=== PATIENT | male | born 1950 | race Hispanic/Latino ===

== ENCOUNTER 2017-04-29 14:12 | Outpatient (CLI) | payer OTHER, MEDICARE ==
[~2017-04-29 14:12] MED LIST: Sodium Chloride 0.9% 15 ML NEB ONE
--- NOTE | 2017-04-29 19:12 | HP ---
DATE OF SERVICE: 04/29/2017 HISTORY OF PRESENT ILLNESS: Mr. John Almodovar Jr. is a very pleasant 67-year-old gentleman, who pre sents to the Wound Center for evaluation of a wound of the right anterior abdominal wall. The patien t states that he underwent right dxbiy-tyg-uuhm amputation in October of this year at [facility]. 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 He states t hat the cyst was opened and drained. He states that the mass appeared to be an abscess. He states t hat the wound was associated with hypogranulation, which was treated with silver nitrate. The patien t states he is presently receiving dressing changes of Adaptic, 4 x 4s, and occlusive dressing 3 time s per week with the assistance of Home Health. PAST MEDICAL HISTORY: 1. Diabetes mellitus. 2. Hypertension. 3. Gastroesophageal reflux disease. 4. Peripheral vascular disease. 5. Bladder carcinoma. PAST SURGICAL HISTORY: 1. Left orchiectomy for testicular carcinoma in 1987. 2. Surgery for abdominal aortic aneurysm. 3. Transurethral resection of bladder tumor. 4. Restaging transurethral resection of bladder tumor. 5. Right paimg-ndw-ymqu amputation in 10/2016 at [facility]. MEDICATIONS: The patient does not have a list of his medications with him today. He states that his medications include medications for hypertension and diabetes mellitus. ALLERGIES: METFORMIN. SOCIAL HISTORY: Negative for tobacco or ETOH use, current or previous. FAMILY HISTORY: Significant for diabetes mellitus. The patient states that his mother was diagnosed with diabetes mellitus. PHYSICAL EXAMINATION: VITAL SIGNS: Temperature 97.8, pulse 86, respirations 18, blood pressure 168/72. Accu-Chek 306. GENERAL: A 67-year-old gentleman sitting on chair in examination room in no acute distress. HEENT: Normocephalic, atraumatic. NECK: No nuchal rigidity. CHEST: Clear to auscultation. CARDIAC: Regular rate and rhythm. ABDOMEN: Soft. EXTREMITIES: A wound of the right anterior abdominal wall is present, which measures approximately 1 .6 x 0.8 cm. Granulation tissue is present within the wound margins. No purulent drainage is associ ated with the wound. No erythema of the skin surrounding the wound is present. No maceration of the skin of the periwound is noted. EXTREMITIES: The patient is utilizing a prosthesis after right iqmep-ugh-pxjo amputation. ASSESSMENT AND PLAN: 1. Wound of right anterior abdominal wall as described above. Dressing changes of Silverlon, 4 x 4' s, and Tegaderm will be initiated today. These dressing changes are to be performed on a daily basis after cleansing and irrigation. No antibiotics will be prescribed today based upon the appearance o f the wound. Arrangements will be made for the home delivery of dressing supplies. I will see Mr. Alvaro yousif again in two weeks. 2. Diabetes mellitus. The patient's Accu-Chek in clinic today is 306. The patient has been told th at for optimal wound healing, his blood glucoses should remain below 150. 3. Hypertension. 4. Gastroesophageal reflux disease 5. Peripheral vascular disease. 6. Bladder carcinoma.
== END 2017-04-29 14:13 | disposition home or self-care (01) ==
LOC: WCC 14:12
PROVIDERS: ATTEND Family Medicine
DX: S31.109D Unspecified open wound of abdominal wall, unspecified quadrant without penetration into peritoneal cavity, subsequent encounter (principal); I10 Essential (primary) hypertension; K21.9 Gastro-esophageal reflux disease without esophagitis; E11.51 Type 2 diabetes mellitus with diabetic peripheral angiopathy without gangrene; C67.9 Malignant neoplasm of bladder, unspecified
CPT/HCPCS: 36416; 97602; 99203; A4218; G0463

== ENCOUNTER 2017-05-13 08:27 | Outpatient (CLI) | payer OTHER, MEDICARE ==
--- NOTE | 2017-05-13 09:29 | PRG ---
DATE OF SERVICE: 05/13/2017 HISTORY: Mr. John Almodovar Jr. is a very pleasant 67-year-old gentleman who presents to the Wound C enter for evaluation of a wound of the right anterior abdominal wall. The patient previously stated that he underwent right ytvex-cfa-truq amputation in October of this year at [facility]. He stated that after surgery, he noted the presence of "cyst of his anterior abdominal wall." He stated that the cy stic was opened and drained. He stated that the mass appeared to be an abscess. He stated that the wound was associated with hypergranulation which was treated with silver nitrate. When the patient w as initially seen in the Wound Center, he had been receiving dressing changes of Adaptic, 4 x 4s and an occlusive dressing 3 times per week with the assistance of Home Health. Since the patient's last visit to the Wound Center, he had been receiving dressing changes of Silverlon, 4 x 4's, and Tegaderm plus pad on a daily basis with the assistance of his . PHYSICAL EXAMINATION: VITAL SIGNS: Temperature 97.8, pulse 92, respirations 18, blood pressure 137/71. Accu-Chek 248. EXTREMITIES: A wound of the right anterior abdominal wall is present which measures approximately 0. 7 x 1.1 cm. The dimensions of the wound at the time of the patient's last visit were approximately 1 .6 x 0.8 cm. Hypergranulation is associated with the wound which was treated with the application of silver nitrate. No purulent drainage is associated with the wound. No maceration of the skin of th e periwound is noted. ASSESSMENT AND PLAN: 1. Wound of right anterior abdominal wall as described above. Dressing changes of Silverlon, 4 x 4' s, and Tegaderm will be continued on a daily basis after cleansing and irrigation. The patient's wif e will continue to assist Mr. Almodovar with his dressing changes. I will see Mr. Almodovar again in one week. 2. Diabetes mellitus. The patient's Accu-Chek in clinic today is 248. The patient has been reminde d that for optimal wound healing, his blood glucoses should remain below 150. 3. Hypertension. 4. Gastroesophageal reflux disease. 5. Peripheral vascular disease. 6. Bladder carcinoma.
== END 2017-05-13 08:28 | disposition home or self-care (01) ==
LOC: WCC 08:27
PROVIDERS: ATTEND Family Medicine
DX: T81.89XD Other complications of procedures, not elsewhere classified, subsequent encounter (principal); E11.9 Type 2 diabetes mellitus without complications; I10 Essential (primary) hypertension; K21.9 Gastro-esophageal reflux disease without esophagitis; I73.9 Peripheral vascular disease, unspecified; C67.9 Malignant neoplasm of bladder, unspecified; Z89.511 Acquired absence of right leg below knee
CPT/HCPCS: 17250; 36416

== ENCOUNTER 2017-05-20 09:16 | Outpatient (CLI) | payer MEDICARE, OTHER ==
--- NOTE | 2017-05-20 11:00 | PRG ---
DATE OF SERVICE: 05/20/2017 HISTORY: Mr. John Almodovar Jr. is a very pleasant 67-year-old gentleman who presents to the Wound C enter for evaluation of a wound of the right anterior abdominal wall. The patient previously stated that he underwent right lsjxw-sbr-ncqj amputation in October of this year at [facility]. He stated that after surgery he noted the presence of a "cyst of his anterior abdominal wall." He stated that the c yst was opened and drained. He stated that the mass appeared to be an abscess. He stated that the w ound was associated with hypergranulation which was treated with silver nitrate. When the patient wa s initially seen in the Wound Center, he had been receiving dressing changes of Adaptic, 4 x 4s and a n occlusive dressing 3 times per week with the assistance of Home Health. Since the patient's last v isit to the Wound Center, he has been receiving dressing changes of Silverlon, 4 x 4's, and Tegaderm plus pad on a daily basis with the assistance of his . PHYSICAL EXAMINATION: VITAL SIGNS: Temperature 98.2, pulse 81, respirations 18, blood pressure 167/68, Accu-Chek 148. EXTREMITIES: A wound of the right anterior abdominal wall is present which measures approximately 0. 3 x 0.4 cm. The dimensions of the wound at the time of the patient's last visit were approximately 0 .7 x 1.1 cm. Hypergranulation is associated with the wound which was treated with the application of silver nitrate. No purulent drainage is associated with the wound. No maceration of the skin of th e periwound is noted. ASSESSMENT AND PLAN: 1. Wound of right anterior abdominal wall as described above. Dressing changes of Silverlon, 4 x 4' s, and Tegaderm will be continued on a daily basis after cleansing and irrigation. The patient's wif e will continue to assist Mr. Almodovar with his dressing changes. I will see Mr. Almodovar again in 2 w eeks. Arrangements will be made for the home delivery of dressing supplies. 2. Diabetes mellitus. The patient's Accu-Chek in clinic today is 148. The patient has been reminde d that for optimal wound healing, his blood glucoses should remain below 150. 3. Hypertension. 4. Gastroesophageal reflux disease. 5. Peripheral vascular disease. 6. Bladder carcinoma.
== END 2017-05-20 09:17 | disposition home or self-care (01) ==
LOC: WCC 09:16
PROVIDERS: ATTEND Family Medicine
DX: T81.89XD Other complications of procedures, not elsewhere classified, subsequent encounter (principal); E11.9 Type 2 diabetes mellitus without complications; I10 Essential (primary) hypertension; K21.9 Gastro-esophageal reflux disease without esophagitis; I73.9 Peripheral vascular disease, unspecified; C67.9 Malignant neoplasm of bladder, unspecified; Z89.511 Acquired absence of right leg below knee
CPT/HCPCS: 17250; 36416; 97602

== ENCOUNTER 2017-06-22 08:37 | Outpatient (CLI) | payer MEDICARE, OTHER ==
--- NOTE | 2017-06-22 09:12 | PRG ---
DATE OF SERVICE: 06/22/2017 HISTORY: Mr. John Almodovar is a very pleasant 67-year-old gentleman who presents to the Wound Center for evaluation of a wound of the right anterior abdominal wall. The patient previously stated that he underwent right below-the -knee amputation in October of this year at [facility]. He stated that after surgery, he noted the presence of a "cyst of his anterior abdominal wall." He stated that the cyst was opened and drained. He stated that the mass appear to be an abscess. He stated that the wound was associated with hypergranulation, which was treated with silver nitrate. When the patient was initially seen in the Wound Center, he had been receiving dressing changes of Adaptic, 4 x 4s, and an occlusive dressing 3 times per week with the assistance of Home Health. Since the patient's last visit to the Wound Center, he has been receiving dressing changes of Silverlon, 4 x 4s, and Tegaderm plus pad on a daily basis with the assistance of his . The patient states that since his last visit, the wound appeared to have almost healed completely. He states that suddenly he had the occurrence of copious serous drainage associated with his wound with subsequent recurrence of the hypergranulation. PHYSICAL EXAMINATION: VITAL SIGNS: Temperature 98.1, pulse 89, respirations 16, blood pressure 150/ 72. Accu-Chek 212. ABDOMEN: A wound of the right anterior abdominal wall is present, which measures approximately 0.5 x 0.7 cm. The dimensions of the wound at the time of the patient's last visit were approximately 0.3 x 0.4 cm. Hypergranulation associated with the wound was treated with the application of silver nitrate. Scissors were also used to excise the hypergranulation associated with the wound. No purulent drainage is associated with the wound. No maceration of the skin of the periwound is noted. ASSESSMENT AND PLAN: 1. Wound of right anterior abdominal wall as described above. Dressing changes of Silverlon, 4 x 4s, and Tegaderm will be continued on a daily basis after cleansing and irrigation. The patient's will continue to assist Mr. Almodovar with his dressing changes. I will see Mr. Almodovar again in one week. I have asked the patient to obtain copies of his operative report from [facility]. 2. Diabetes mellitus. The patient's Accu-Chek in clinic today is 212. The patient has been reminded that for optimal wound healing, his blood glucoses should remain below 150. 3. Hypertension. 4. Gastroesophageal reflux disease. 5. Peripheral vascular disease. 6. Bladder carcinoma. MTDD
[2017-06-22] MEDS ORDERED: Sodium Chloride 0.9% 15 ML NEB ONE (10:00)
== END 2017-06-22 08:38 | disposition home or self-care (01) ==
LOC: WCC 08:37
PROVIDERS: ATTEND Family Medicine
DX: S31.109A Unspecified open wound of abdominal wall, unspecified quadrant without penetration into peritoneal cavity, initial encounter (principal); E11.9 Type 2 diabetes mellitus without complications; I10 Essential (primary) hypertension; K21.9 Gastro-esophageal reflux disease without esophagitis; I73.9 Peripheral vascular disease, unspecified; C67.9 Malignant neoplasm of bladder, unspecified
CPT/HCPCS: 17250; 36416; A4218

== ENCOUNTER 2017-06-29 08:10 | Outpatient (CLI) | payer MEDICARE, OTHER ==
--- NOTE | 2017-06-29 09:39 | PRG ---
DATE OF SERVICE: 06/29/2017 HISTORY: Mr. John Almodovar is a very pleasant 67-year-old gentleman who presents to the Wound Center for evaluation of a wound of the right anterior abdominal wall. The patient previously stated that he underwent right below-the -knee amputation in October of this year at [facility]. He stated that after surgery, he noted the presence of a "cyst" of his anterior abdominal wall. He stated that the cyst was opened and drained. He stated that the mass appeared to be an abscess. He stated that the wound was associated with hypergranulation , which was treated with silver nitrate. When the patient was initially seen in the Wound Center, he had been receiving dressing changes of Adaptic, 4 x 4s, and an occlusive dressing 3 times per week with the assistance of Home Health. Since the patient's last visit to the Wound Center, Mr. Almodovar has been receiving dressing changes of Silverlon, 4 x 4s, and Tegaderm plus pad on a daily basis with the assistance of his . He states that the drainage associated with his wound has decreased since his last visit. PHYSICAL EXAMINATION: VITAL SIGNS: Temperature 97.9, pulse 80, respirations 18, blood pressure 119/ 64. Accu-Chek 216. ABDOMEN: A wound of the right anterior abdominal wall is present, which measures approximately 0.5 x 0.6 cm. The dimensions of the wound at the time of the patient's last visit were approximately 0.5 x 0.7 cm. Hypergranulation associated with the wound was treated with the application of silver nitrate. Scissors were also used to excise the hypergranulation associated with the wound. No purulent drainage is associated with the wound. No maceration of the skin of the periwound is noted. ASSESSMENT AND PLAN: 1. Wound of right anterior abdominal wall as described above. Dressing changes of Silverlon, 4 x 4s, and Tegaderm will be continued on a daily basis after cleansing and irrigation. The patient's will continue to assist Mr. Almodovar with his dressing changes. I will see Mr. Almodovar again in one week. The patient was previously asked to obtain copies of his operative reports from [facility]. 2. Diabetes mellitus. The patient's Accu-Chek in clinic today is 216. The patient has been reminded that for optimal wound healing, his blood glucoses should remain below 150. 3. Hypertension. 4. Gastroesophageal reflux disease. 5. Peripheral vascular disease. 6. Bladder carcinoma. MTDD
[2017-06-29] MEDS ORDERED: Sodium Chloride 0.9% 15 ML NEB ONE (13:33)
== END 2017-06-29 08:11 | disposition home or self-care (01) ==
LOC: WCC 08:10
PROVIDERS: ATTEND Family Medicine
DX: T81.89XD Other complications of procedures, not elsewhere classified, subsequent encounter (principal); E11.69 Type 2 diabetes mellitus with other specified complication; I10 Essential (primary) hypertension; K21.9 Gastro-esophageal reflux disease without esophagitis; I73.9 Peripheral vascular disease, unspecified; C67.9 Malignant neoplasm of bladder, unspecified; Z89.511 Acquired absence of right leg below knee
CPT/HCPCS: 17250; 36416; 97602; A4218

== ENCOUNTER 2017-07-06 08:14 | Outpatient (CLI) | payer MEDICARE, OTHER ==
--- NOTE | 2017-07-06 09:25 | PRG ---
DATE OF SERVICE: 07/06/2017 HISTORY: Mr. John Almodovar Jr. is a very pleasant 67-year-old gentleman who presents to the Wound Center for evaluation of a wound of the right anterior abdominal wall. The patient previously stated that he underwent right below-the -knee amputation in October of this year at [facility]. He stated that after surgery he noted the presence of a "cyst" of the anterior abdominal wall. He stated that the cyst was opened and drained. He stated that the mass appeared to be an abscess. He stated that the wound was associated with hypergranulation which was treated with silver nitrate. When the patient was initially seen in the Wound Center, he had been receiving dressing changes of Adaptic, 4 x 4s, and an occlusive dressing 3 times per week with the assistance of Home Health. Since the patient's last visit to the Wound Center, Mr. Almodovar has been receiving dressing changes of Silverlon, 4 x 4s, and Tegaderm plus pad on a daily basis with the assistance of his . Again, Mr. Almodovar states, the drainage associated with his wound has decreased since his last visit. PHYSICAL EXAMINATION: VITAL SIGNS: Temperature 97.8, pulse 91, respirations 18, blood pressure 105/ 66. Accu-Chek 185. ABDOMEN: A wound of the right anterior abdominal wall is present which measures approximately 0.2 x 0.3 cm. The dimensions of the wound at the time of the patient's last visit were approximately 0.5 x 0.6 cm. No hypergranulation is visible within the wound margins today. No purulent drainage is associated with the wound. No maceration of the skin of the periwound is noted. ASSESSMENT AND PLAN: 1. Wound of right anterior abdominal wall as described above. Dressing changes of Silverlon, 4 x 4s, and Tegaderm will be continued on a daily basis after cleansing and irrigation. The patient's will continue to assist Mr. Almodovar with his dressing changes. I will see Mr. Almodovar again in 1 week. The patient states he has a follow-up appointment with his surgeon in early July. 2. Diabetes mellitus. The patient's Accu-Chek in clinic today is 185. The patient has been reminded that for optimal wound healing, his blood glucoses should remain below 150. 3. Hypertension. 4. Gastroesophageal reflux disease. 5. Peripheral vascular disease. 6. Bladder carcinoma. MTDD
== END 2017-07-06 08:15 | disposition home or self-care (01) ==
LOC: WCC 08:14
PROVIDERS: ATTEND Family Medicine
DX: S31.109D Unspecified open wound of abdominal wall, unspecified quadrant without penetration into peritoneal cavity, subsequent encounter (principal); C67.9 Malignant neoplasm of bladder, unspecified; E11.9 Type 2 diabetes mellitus without complications; I10 Essential (primary) hypertension; K21.9 Gastro-esophageal reflux disease without esophagitis; I73.9 Peripheral vascular disease, unspecified
CPT/HCPCS: 36416; 97602

== ENCOUNTER 2017-07-13 07:52 | Outpatient (CLI) | payer MEDICARE, OTHER ==
--- NOTE | 2017-07-13 08:49 | PRG ---
DATE OF SERVICE: 07/13/2017 HISTORY: Mr. John Almodovar Jr. is a very pleasant 67-year-old gentleman who presents to the Wound C enter for evaluation of a wound of the right anterior abdominal wall. The patient previously stated that he underwent right fozgl-pli-wjmk amputation in October of 2016 at [facility]. He stated that after surgery he noted the presence of "cyst" of the anterior abdominal wall. He stated that the cyst was opened and drained. He stated that the mass appear to be an abscess. He stated that the wound was associated with hypergranulation which was treated with silver nitrate. When the patient was initial ly seen in the Wound Center, he had been receiving dressing changes of Adaptic, 4 x 4s and an occlusi ve dressing 3 times per week with the assistance of Home Health. Since the patient's last visit to [facility], Mr. Almodovar has been receiving dressing changes of Silverlon, 4 x 4's, and Tegaderm plus pad every other day with the assistance of his . Today Mr. Almodovar states that he has not h ad any drainage associated with his wound since his last visit. PHYSICAL EXAMINATION: VITAL SIGNS: Temperature 97.7, pulse 70, breathing at 16, blood pressure 134/67. ABDOMEN: The wound of the right anterior abdominal wall has almost healed completely. No hypergranu lation is visible within the wound margins today. No drainage is associated with the wound. No mace ration of the skin of the periwound is noted. ASSESSMENT AND PLAN: 1. Wound of right anterior abdominal wall as described above. Dressing changes of Tegaderm are to b e performed 3 times per week after cleansing and irrigation. The patient's will continue to ass ist Mr. Almodovar with his dressing changes. The wound has almost healed completely and Mr. Almodovar wi ll be discharged from clinic today with followup on a p.r.n. basis. The patient states he has a foll owup appointment with his surgeon next week. As stated above, the patient reports no drainage associ ated with his wound since his last visit on 07/06/2017. 2. Diabetes mellitus. The patient has been reminded that for optimal wound healing, his blood gluco ses should remain below 150. 3. Hypertension. 4. Gastroesophageal reflux disease. 5. Peripheral vascular disease. 6. Bladder carcinoma.
[2017-07-13] MEDS ORDERED: Sodium Chloride 0.9% 15 ML NEB ONE (16:57)
== END 2017-07-13 07:53 | disposition home or self-care (01) ==
LOC: WCC 07:52
PROVIDERS: ATTEND Family Medicine
DX: S31.109A Unspecified open wound of abdominal wall, unspecified quadrant without penetration into peritoneal cavity, initial encounter (principal); E11.9 Type 2 diabetes mellitus without complications; I10 Essential (primary) hypertension; K21.9 Gastro-esophageal reflux disease without esophagitis; I73.9 Peripheral vascular disease, unspecified; C67.9 Malignant neoplasm of bladder, unspecified
CPT/HCPCS: A4218

== ENCOUNTER 2017-08-14 11:04 | Outpatient (CLI) | payer MEDICARE, OTHER ==
[2017-08-14 12:24] LABS: Bilirubin Negative (Negative); Blood, Urine Small (Negative); Clarity CLEAR (Clear); Glucose, Urine (Dipstick) >=1000 mg/dL (Negative); Leukocyte Negative (Negative); Nitrite Negative (Negative); Protein, Urine (Dipstick) 100 mg/dL (Neg-Trace); Specific Gravity, Urine 1.025 (1.002-1.036); pH, Urine 5.5 (5.0-9.0)
[2017-08-14 12:26] LABS: Bacteria/HPF None Seen HPF (None Seen); Hyaline Casts/LPF 0-3 HYALINE CAST LPF (0-3 Hyaline); Squamous Epithelial None Seen HPF (0-3); WBC/HPF 0-3 HPF (0-3)
[2017-08-14 12:27] LABS: PTT 27.3 SEC (22.9-36.1); Prothrombin Time 13.4 SEC (12.0-14.7)
[2017-08-14 12:39] LABS: Anion Gap 13 mmol/L (10-20); BUN (Urea Nitrogen) 22 mg/dL (8.4-25.7); Calc. Creatinine Clearance 0 mL/min (70-130); Calcium 9.5 mg/dL (7.8-10.44); Carbon Dioxide 24 mmol/L (23-31); Chloride 102 mmol/L (98-107); Estimated GFR-MDRD 62; Glucose 332 mg/dL (80-115); Sodium 135 mmol/L (136-145)
[2017-08-14 12:55] LABS: Hemoglobin 13.2 g/dL (14.0-18.0); Mean Corpuscular HGB CONC 35.1 g/dL (32.0-36.0); Mean Corpuscular Hemoglobin 30.8 pg (27.0-31.0); Mean Corpuscular Volume 87.8 fl (80.0-94.0); Mean Platelet Volume 9.3 fL (7.4-10.4); Platelet Count 125 thou/uL (130-400); RBC Distribution Width 11.7 % (11.5-14.5); Red Blood Cell (RBC) Count 4.29 mill/uL (4.70-6.10); White Blood Cell (WBC) Count 7.5 thou/uL (4.8-10.8)
--- NOTE | 2017-08-15 08:10 | EKG ---
Test Reason : Blood Pressure : / mmHG Vent. Rate : 074 BPM Atrial Rate : 074 BPM P-R Int : 166 ms QRS Dur : 094 ms QT Int : 384 ms P-R-T Axes : 059 046 028 degrees QTc Int : 426 ms Normal sinus rhythm Normal ECG When compared with ECG of 08-OCT-2015 16:45, No significant change was found Confirmed by DR. Donald VOGT ([id number]) on 08/15/2017 8:09:49 AM Referred By: KT Confirmed By:DR. Donald VOGT
== END 2017-08-14 11:05 | disposition home or self-care (01) ==
LOC: LABBT 11:04
PROVIDERS: ATTEND Urology
DX: Z01.818 Encounter for other preprocedural examination (principal); N32.89 Other specified disorders of bladder
CPT/HCPCS: 80048; 81001; 85027; 85610; 85730; 87077; 87086; 87186; 93005; 93010

== ENCOUNTER 2017-10-29 10:37 | Outpatient (CLI) | payer MEDICARE ==
[2017-10-29 12:28] LABS: Hemoglobin 13.2 g/dL (14.0-18.0); Mean Corpuscular HGB CONC 35.1 g/dL (32.0-36.0); Mean Corpuscular Hemoglobin 31.3 pg (27.0-31.0); Mean Corpuscular Volume 89.2 fl (80.0-94.0); Mean Platelet Volume 9.3 fL (7.4-10.4); Platelet Count 147 thou/uL (130-400); RBC Distribution Width 11.6 % (11.5-14.5); Red Blood Cell (RBC) Count 4.22 mill/uL (4.70-6.10); White Blood Cell (WBC) Count 5.7 thou/uL (4.8-10.8)
[2017-10-29 12:34] LABS: PTT 25.8 SEC (22.9-36.1)
[2017-10-29 12:50] LABS: Anion Gap 12 mmol/L (10-20); BUN (Urea Nitrogen) 21 mg/dL (8.4-25.7); Calc. Creatinine Clearance 0 mL/min (70-130); Calcium 9.3 mg/dL (7.8-10.44); Carbon Dioxide 27 mmol/L (23-31); Chloride 100 mmol/L (98-107); Estimated GFR-MDRD 56; Glucose 394 mg/dL (80-115); Potassium 4.1 mmol/L (3.5-5.1); Sodium 135 mmol/L (136-145)
[2017-10-29 13:41] LABS: Bilirubin Negative (Negative); Blood, Urine Moderate (Negative); Clarity CLEAR (Clear); Glucose, Urine (Dipstick) >=1000 mg/dL (Negative); Leukocyte Negative (Negative); Nitrite Negative (Negative); Protein, Urine (Dipstick) 30 mg/dL (Neg-Trace); Specific Gravity, Urine 1.024 (1.002-1.036); Urobilinogen 0.2 mg/dL (0.2-1.0); pH, Urine 5.5 (5.0-9.0)
[2017-10-29 13:42] LABS: Bacteria/HPF None Seen HPF (None Seen); Hyaline Casts/LPF 0-3 HYALINE CAST LPF (0-3 Hyaline); RBC/HPF 21-50 HPF (0-3); Squamous Epithelial None Seen HPF (0-3); WBC/HPF 0-3 HPF (0-3)
== END 2017-10-29 10:38 | disposition home or self-care (01) ==
LOC: LABBT 10:37
PROVIDERS: ATTEND Urology
DX: Z01.818 Encounter for other preprocedural examination (principal); C67.9 Malignant neoplasm of bladder, unspecified
CPT/HCPCS: 80048; 81001; 85027; 85610; 85730; 87086; 93005; 93010; 94060; 94727; 94729

== ENCOUNTER 2017-11-12 06:12 | Day surgery (SDC) | payer MEDICARE ==
[2017-10-29 10:54] VITALS: BMI 25.8
[2017-11-12] MEDS ORDERED: Levofloxacin 500 mg/D5W 100 ml Premix Bag ONE (06:28)
[2017-11-12] MEDS ORDERED: Insulin Regular 300 UNITS/3 ML VIAL ONE (08:07)
[2017-11-12] MEDS ORDERED: Fentanyl 100 MCG/2 ML VIAL ONE (08:16)
[2017-11-12] MEDS ORDERED: Ondansetron HCl/PF 4 MG/2 ML Vial ONE ×2 (09:11→15:15)
[2017-11-12] MEDS ORDERED: PROPOFOL 20 ML ONE (09:11)
[2017-11-12] MEDS ORDERED: Lidocaine 1% PF 5 ML VIAL ONE ×2 (09:12→15:15)
--- NOTE | 2017-11-12 09:46 | OP ---
DATE OF SURGERY: 11/12/2017 SERVICE: Urology SURGEON: Edin Reynolds M.D. PREOPERATIVE DIAGNOSIS: Bladder lesion. POSTOPERATIVE DIAGNOSIS: Bladder lesion. PROCEDURE PERFORMED: Bladder biopsy. INDICATIONS FOR PROCEDURE: Mr. Almodovar is a 67-year-old male with a history of prior bladde r cancer. On his surveillance, he was noted to have an erythematous red lesion on his posterior blad sanya wall. This has been followed and has actually grown and is now appearing a little bit more red. I would recommend that we go in for cystoscopy with bladder biopsies. Risks and benefits were discu ssed and he agreed to proceed forward. DESCRIPTION OF PROCEDURE: After identification of armband and verification of consent, the patient w as brought back to the operating room where he underwent general anesthesia with an LMA. He was plac ed in dorsal lithotomy position and prepped and draped in usual sterile fashion. After appropriate t imeout, a lubricated 22 [place] rigid cystoscope was used per urethra into the bladder. A full cystos copy was performed. There were no obvious tumors anywhere in the bladder, but the erythematous red l esion was again noted on the posterior dome of the bladder in the same location as noted on office cy stoscopy. Using the cold cup biopsy forceps, 2 biopsies were taken from the center of this red lesio n and sent off for routine pathologic evaluation in formalin. The Bugbee electrode was then used to cauterize the biopsied area until there was excellent hemostasis. The bladder was decompressed and p artially refilled and reevaluated and there was no bleeding coming from the biopsy site. The bladder was then drained. The cystoscope removed. The patient awakened and taken to PACU for recovery in s table condition. COMPLICATIONS: None. ESTIMATED BLOOD LOSS: Minimal. RETAINED TUBES AND DRAINS: None. SPECIMENS: Bladder biopsy x2. DISPOSITION: The patient will be discharged home and follow up with me next week for biopsy results.
[2017-11-12] MEDS ORDERED: PROPOFOL 200 MG/20 ML VIAL ONE (15:15)
== END 2017-11-12 11:20 | disposition home or self-care (01) ==
LOC: SDC 06:12
PROVIDERS: ATTEND Urology
PROC: 0TBB8ZX Excision of Bladder, Via Natural or Artificial Opening Endoscopic, Diagnostic (ICD-10-PCS; principal; 2017-11-12)
DX: N32.9 Bladder disorder, unspecified (principal); I10 Essential (primary) hypertension; E11.9 Type 2 diabetes mellitus without complications; E78.5 Hyperlipidemia, unspecified; Z79.4 Long term (current) use of insulin; Z79.82 Long term (current) use of aspirin; Z79.02 Long term (current) use of antithrombotics/antiplatelets; Z79.899 Other long term (current) drug therapy; Z88.2 Allergy status to sulfonamides
CPT/HCPCS: 36416; 88305; J1815; J1956; J2001; J2405; J2704; J3010

== ENCOUNTER 2017-12-05 07:34 | Inpatient (IN) | payer MEDICARE ==
[2017-12-05 08:31] LABS: #Eosinphils 0.1 thou/uL (0.0-0.7); #Lymphocytes 1.6 thou/uL (1.20-3.40); #Monocytes 0.5 thou/uL (0.11-0.59); #Neutrophils 3.9 thou/uL (1.40-6.50); %Basophils 0.3 % (0.0-1.0); %Eosinophils 1.3 % (0.0-10.0); %Lymphocytes 26.6 % (21.0-51.0); %Monocytes 7.6 % (0.0-10.0); %Neutrophils 64.2 % (42.0-75.0); Mean Corpuscular HGB CONC 35.6 g/dL (32.0-36.0); Mean Corpuscular Hemoglobin 31.5 pg (27.0-31.0); Mean Corpuscular Volume 88.4 fL (78.0-98.0); Mean Platelet Volume 8.3 fL (7.4-10.4); Platelet Count 134 thou/uL (130-400); RBC Distribution Width 11.5 % (11.5-14.5); Red Blood Cell (RBC) Count 3.82 mill/uL (4.70-6.10); White Blood Cell (WBC) Count 6.1 thou/uL (4.8-10.8)
[2017-12-05 08:37] LABS: Prothrombin Time 13.6 SEC (12.0-14.7)
[2017-12-05 08:41] LABS: Bilirubin Large (Negative); Blood, Urine Large (Negative); Clarity TURBID (Clear); Glucose, Urine (Dipstick) 250 mg/dL (Negative); Leukocyte Moderate (Negative); Nitrite Positive (Negative); Protein, Urine (Dipstick) > or equal to 300 mg/dL (Neg-Trace); Specific Gravity, Urine 1.029 (1.002-1.036); pH, Urine 6.5 (5.0-9.0)
[2017-12-05 08:44] LABS: Bacteria/HPF None Seen HPF (None Seen); RBC/HPF GREATER THAN 50-TNTC HPF (0-3); Squamous Epithelial None Seen HPF (0-3)
[2017-12-05 08:47] LABS: Pathc Cast-AUWi Flag 8.47 (0-2.49)
[2017-12-05 08:49] LABS: Anion Gap 14 mmol/L (10-20); BUN (Urea Nitrogen) 18 mg/dL (8.4-25.7); Calc. Creatinine Clearance 0 mL/min (70-130); Carbon Dioxide 23 mmol/L (23-31); Chloride 101 mmol/L (98-107); Estimated GFR-MDRD 63; Glucose 255 mg/dL (80-115); Potassium 4.3 mmol/L (3.5-5.1); Sodium 134 mmol/L (136-145)
[2017-12-05 08:54] LABS: Hyaline Casts/LPF NONE SEEN LPF (0-3 Hyaline); Manual Microscopic Reviewed? No Path Casts Seen
[2017-12-05] MEDS ORDERED: HYDROmorphone 0.5 MG/0.5 ML SYRINGE ONE (09:03)
[2017-12-05] MEDS ORDERED: Fentanyl 100 MCG/2 ML VIAL ONE (09:03)
[2017-12-05] MEDS ORDERED: Midazolam HCl 2 mg/2 ml Vial ONE (09:03)
[2017-12-05] MEDS ORDERED: Piperacillin/Tazobactam 3.375 GM VIAL ONE (09:20)
--- NOTE | 2017-12-05 10:04 | CT ---
CT OF THE ABDOMEN AND PELVIS WITHOUT AND WITH CONTRAST: COMPARISON: 02/23/17. HISTORY: Bladder cancer with hematuria and heavy bleeding from the penis that began on . TECHNIQUE: Multiple contiguous axial images were obtained in a CT of the abdomen and pelvis without and with IV contrast per urography protocol. Postcontrast images were obtained in the nephrographic and excretor y phases. Coronal reformats were performed. 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 There are punctate 1-2 mm calcifications in the right kidney. No hydronephr osis is seen. Gallstones are seen in the gallbladder. The liver, adrenal glands, spleen, and pancreas are unremark able. No free air, free fluid, or stranding changes are seen in the abdomen or pelvis. The large and small bowel are unremarkable. No abdominal or pelvis lymphadenopathy are present. There is a 9.1 cm hyperdense mass within the urinary bladder. This was not seen on the prior examina tion. There is hyperdense without IV contrast and likely represents a large amount of hematoma. The re appears to be active extravasation along the superior aspect of the superior and left lateral aspe ct of the bladder. No abdominal or pelvic lymphadenopathy are seen. Atherosclerotic calcifications are seen in the aorta. 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 This is unchanged. The patient has a bypass graft extending from the aorta near the diaphragm down to the left external iliac artery /common femoral artery. These findings are stable compared to the prior exam. There are multiple periumbilical ventral hernias containing fat and nonobstructed small bowel. Along the right abdominal wall, there is a tubular structure running from cranial to caudal in direction. This runs to the region of the right groin and could have represented a prior axillofemoral bypass g raft site. This does not contain air like it did on the prior examination. Degenerative changes are seen in the spine. There is an abnormal appearance of the right femoral nec k which could potentially represent a metastatic lesion and/or healing fracture. The visualized infe rior thorax is unremarkable. IMPRESSION: 1. Large bladder hematoma with active extravasation into the urinary bladder at this time. 2. Nonobstructing right renal calcification. 3. Cholelithiasis. POS: [facility]
[2017-12-05] MEDS ORDERED: diphenhydrAMINE 50 MG/ML VIAL IVP PRN (11:22)
[2017-12-05] MEDS ORDERED: Mag-Al 1200 mg/1200 mg/30 ML UDCUP PO PRN (11:22)
[2017-12-05] MEDS ORDERED: hydrALAZINE 20 MG/ML VIAL SLOW IVP PRN ×2 (11:22)
[2017-12-05] MEDS ORDERED: Dextrose 5% in Water 1,000 ML IV PRN (11:27)
[2017-12-05] MEDS ORDERED: Dextrose 50% Abboject 50 ML SYRINGE SLOW IVP PRN (11:27)
[2017-12-05] MEDS ORDERED: SUGAMMADEX SODIUM 200 MG/2 ML VIAL ONE ×2 (11:29→11:30)
[2017-12-05] MEDS ORDERED: ISOVUE-370 76%-LOCM 1 ML ONE (12:12)
[2017-12-05] MEDS: Hyoscyamine Sulfate SL 0.125 mg Tablet SL SCH ×3 (12:58→23:37)
[2017-12-05] MEDS: Sodium Chloride 0.9% 1,000 ML IV SCH ×2 (12:59→22:49)
--- NOTE | 2017-12-05 13:13 | CON ---
DATE OF CONSULTATION: 12/05/2017 ER CONSULTATION PRIMARY UROLOGIST: Dr. Reynolds. HISTORY OF PRESENT ILLNESS: Mr. Almodovar is a pleasant 67-year-old male , Pashto speaking, who presents with his to the emergency room per my request. The patient called our office on Thursday afternoon complaining of gross hematuria. He was advised to obtain a UA C&S. Subsequently, gross hematuria has persisted and his was concerned regarding persistent hematuria with passing of clots, I informed them to transition to the emergency room this morning. He denies fever, nausea, vomiting, abdominal discomfort. Extended family at bedside. His chart is reviewed extensively both in-house an outpatient records and clinical history. PAST MEDICAL HISTORY: Includes diabetes, hypertension, hyperlipidemia, osteoarthritis, history of right testicular cancer, status post orchiectomy, history of low-grade TCC, history of large fungal growth of AAA followed by a CT surgeon in [place] on chronic Diflucan for the rest of his life. PAST SURGICAL HISTORY: AAA repair in 2002, right radical orchiectomy by Dr. 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 On 11/12/2017, he underwent cystoscopy, bladder biopsy of an erythematous nonspecific lesion by Dr. Reynolds. Multiple biopsies at the dome was obtained. Pathology negative for malignancy. FAMILY HISTORY: Positive for heart disease, hypertension. SOCIAL HISTORY: Nonsmoker, works at [employer], has extended family at bedside and . HOME MEDICATIONS: Include tamsulosin, amlodipine, fluconazole, glimepiride, atorvastatin, baby aspirin, Plavix 75 mg, which he took last night, lisinopril, tramadol, Colace, Pyridium, oxybutynin p.r.n. ALLERGIES: He is allergic to METFORMIN. PHYSICAL EXAMINATION: GENERAL: Patient is resting comfortably. HEART: Has regular rate. LUNGS: Decreased inspiratory effort; however, clear. ABDOMEN: Demonstrates midline laparotomy incision with ventral incisional hernia, nontender. He has evidence of prior graft in his groin, right lower extremity consistent with BKA. GENITOURINARY: Right testicle is absent consistent with right radical orchiectomy. Left testis is grossly unremarkable. He is uncircumcised, there is gross blood at the meatus. Of note, ER staff was unable to pass a coude; however, this was a 24 Swiss three-way by the ER staff. Unable to pass to the level of the bladder. IMAGING DATA: Per my request, a CT of the abdomen and pelvis with and without IV contrast hematuria protocol was obtained which the patient just recently returned from CT. PERTINENT LABORATORY DATA: White count 6.1, hemoglobin is 12. Last month hemoglobin is 13, platelet 134, BUN 21, creatinine 1.29. Recent urine demonstrates 100 protein, trace leukocytes, positive nitrites; however, no bacteria with 7-10 rbc's. His previous coagulation profile was within normal limits. His previous urine culture dated 08/2017 demonstrates Enterococcus multidrug resistant, sensitive to Zosyn. CT on 02/2017 demonstrates no hydronephrosis, no obstruction. Today, CT scan hematuria protocol which I reviewed myself and with the radiologist, there is a large bladder hematoma measuring approximately 8-9 cm. There is active arterial bleeding appreciated , there is no evidence of hydronephrosis. The prostate is not significantly enlarged. IMPRESSION/PLAN: 1. Mr. Almodovar is a 67-year-old male with history of diabetes. 2. Hypertension. 3. History of testicular cancer. 4. History of AAA with large fungal growth. 5. History of bladder cancer, status post transurethral resection of the bladder tumor 2013, low grade T1 TCC. He has completed his BCG per patient. Recent cystoscopy, bladder biopsy was obtained due to nonspecific lesion just few weeks ago. He presents with gross hematuria, clot retention with very large clot with evidence of active bleeding. The patient is n.p.o. for OR for evacuation of clots, fulguration of bleed. I do not think that this bladder cancer recurrence is likely he has bleeding from the previous biopsy site. Plavix will be held. We will consult medical service to follow due to multiple comorbidities. Plavix / anticoagulation is contraindicated due to active bleeding. [facility]
[2017-12-05 13:24] VITALS: BMI 25.0
[2017-12-05 13:28] LABS: #Lymphocytes 1.1 thou/uL (1.20-3.40); #Monocytes 0.4 thou/uL (0.11-0.59); #Neutrophils 5.7 thou/uL (1.40-6.50); %Eosinophils 0.6 % (0.0-10.0); %Lymphocytes 15.2 % (21.0-51.0); %Monocytes 5.5 % (0.0-10.0); %Neutrophils 78.7 % (42.0-75.0); Hemoglobin 10.8 g/dL (14.0-18.0); Mean Corpuscular HGB CONC 34.9 g/dL (32.0-36.0); Mean Corpuscular Hemoglobin 30.9 pg (27.0-31.0); Mean Corpuscular Volume 88.4 fL (78.0-98.0); Mean Platelet Volume 7.8 fL (7.4-10.4); Platelet Count 137 thou/uL (130-400); RBC Distribution Width 11.6 % (11.5-14.5); Red Blood Cell (RBC) Count 3.51 mill/uL (4.70-6.10); White Blood Cell (WBC) Count 7.3 thou/uL (4.8-10.8)
[2017-12-05] MEDS: cefTRIAXone\\ROCEPHIN 1 GM in Sodium Chloride 0.9% 100 ML IVPB SCH (13:42)
--- NOTE | 2017-12-05 14:41 | HP ---
PRIMARY CARE PHYSICIAN: Erick Pradhan D.O. PRESENTING COMPLAINT: "Blood in my urine." HISTORY OF PRESENT ILLNESS: Mr. John Almodovar is a 67-year-old male with a medical history of hypertension, hyperlipidemia, testicular malignancy, AAA, type 2 diabetes mellitus, peripheral vascular disease, and hiatal hernia, who presents to the emergency room with hematuria. He reports that it started on evening where he had one episode of hematuria. He recently had a urological procedure about 2 weeks ago, so he had attributed this to his recent procedure; however, two days later, he developed persistent hematuria associated with blood clots. Due to worsening symptoms, he called his urologist , who then told him to present to the hospital. At the emergency room, his vital signs were stable. Hemoglobin was 10.8 and urinalysis revealed urine with large amount of blood and he immediately had a CT of the abdomen/pelvis, which revealed a large bladder hematoma with active extravasation into the urinary bladder and also had a nonobstructive renal calcification and cholelithiasis. Before coming to the emergency room, he also complained of urinary retention. He had no fevers or chills. He had no cardiac, pulmonary, or abdominal symptoms. PAST MEDICAL HISTORY: As stated in the HPI. PAST SURGICAL HISTORY: AAA repair, cystoscopy and bladder biopsy. FAMILY HISTORY: Reviewed and noncontributory. SOCIAL HISTORY: Does not drink alcohol, smoke cigarettes or use illicit drugs. ALLERGIES: No known drug allergies. HOME MEDICATIONS: Aspirin 81 mg daily, Plavix 75 mg q.a.m., Norvasc 5 mg daily , atorvastatin 20 mg at bedtime, fluconazole 100 mg q.a.m., glimepiride 2 mg b.i.d., lisinopril 2.5 mg q.a.m., Flomax 0.4 mg at bedtime. REVIEW OF SYSTEMS: All systems reviewed were negative except as stated in HPI. PHYSICAL EXAMINATION: VITAL SIGNS: Temperature 97.5 degree Fahrenheit, pulse rate 73, respiratory rate 18, oxygen saturation 98% on room air, blood pressure 116/70. GENERAL: Not in acute distress. He is lying comfortably in bed. HEENT: Normocephalic and atraumatic. Not pale, anicteric. Moist mucous membrane. CARDIOVASCULAR: S1, S2 only. Regular rate and rhythm. No murmurs, rubs or gallops. RESPIRATORY: Vesicular breath sounds bilaterally. No wheezes, rales or rhonchi. ABDOMEN: Soft, nontender, nondistended. Bowel sounds normoactive. No hepatosplenomegaly. No suprapubic tenderness. MUSCULOSKELETAL: No edema in the left lower extremities. He has an amputation on his right extremity and uses a prosthesis. NEUROLOGIC: Alert and well oriented to time, place and person. No focal deficits. PSYCHIATRIC: Normal mood and affect. SKIN: Warm, dry, well-perfused. No rashes or lesions. LABORATORY DATA: Urinalysis with large amounts of blood, nitrites, bilirubin and wbc 7-10. Hematology: Hemoglobin was 12 on arrival at around 8:25 a.m. but then dropped to 10.8 around 1:00 p.m. INR 1.0. Serum chemistry unremarkable apart from blood glucose of 255. IMAGING: CT abdomen/pelvis as stated in HPI. ASSESSMENT AND PLAN: 1. Hematuria secondary to large bladder hematoma. 2. Hypertension. 3. Type 2 diabetes mellitus. 4. Hyperlipidemia. 5. Peripheral vascular disease. PLAN: The patient is to be taken to the OR by Urology Service for removal of his hematoma. We will trend his hemoglobin q.8 hours, and transfuse if hemoglobin less than 7. For his type 2 diabetes, he will be resumed on his home medications and placed on sliding scale insulin a.c. and at bedtime. His antihypertensive will also be restarted as well as his cholesterol medications. Aspirin and Plavix being held for now secondary to hematuria and hematoma. Deep venous thrombosis prophylaxis, SCDs. CODE STATUS: FULL CODE. MTDD
[2017-12-05] MEDS: HYDROcodone/Acetaminophen 7.5/325 mg Tablet PO PRN ×2 (15:01→19:14)
--- NOTE | 2017-12-05 16:09 | OP ---
DATE OF PROCEDURE: 12/05/2017 PREOPERATIVE DIAGNOSES: 1. A 67-year-old male with history of transitional cell carcinoma of the bladder. 2. Recent cystoscopy, bladder biopsy of dome lesion, 11/12/2017. 3. History of peripheral vascular disease on chronic anticoagulation with Plavix. 4. Current presentation due to clot retention, CT demonstrating 8-9 cm large bladder tumor with active bleed as there is an arterial blush. POSTOPERATIVE DIAGNOSES: 1. A 67-year-old male with history of transitional cell carcinoma of the bladder. 2. Recent cystoscopy, bladder biopsy of dome lesion, 11/12/2017. 3. History of peripheral vascular disease and chronic anticoagulation with Plavix. 4. Current presentation due to clot retention, CT demonstrating 8-9 cm large bladder tumor with active bleed as there is an arterial blush. PROCEDURES PERFORMED: Cystoscopy, evacuation of very large bladder clot, fulguration of bleed, 22-Honduran 30 mL Yadav catheter 3-way and continuous bladder irrigation. SURGEON: Sabine Sidhu D.O. ANESTHESIA: General. COMPLICATIONS: None apparent. SPECIMEN: Bladder clots sent for permanent. ESTIMATED BLOOD LOSS: Intraoperative minimal. INTRAOPERATIVE FINDINGS: 1. Previous bladder biopsy site noted at the dome with active oozing/bleed, another area in the left lateral bladder neck with a discrete area of bleed. 2. Diffuse area of intermittent weepy bladder mucosa. 3. Prostate hyperplasia minimally obstructing. INDICATIONS FOR THE PROCEDURE AND HISTORY: Mr. Almodovar is a 67-year-old male followed by Dr. Reynolds. He has a history of bladder cancer and has completed BCG. He recently underwent bladder biopsy 11/12/2017, bladder biopsy site was cauterized with endoscopic Bugbee. He called our office on Thursday due to gross hematuria, advised regarding UA WELFARE DIRECTOR to rule out UTI component. Called this morning due to persistent gross hematuria. He states that he has been urinating hematuria red in color for the last few days. CT of the abdomen and pelvis in the ER demonstrated very large bladder clot with active vascular blush. The patient was taken emergently to the OR. DESCRIPTION OF THE PROCEDURE: After an informed consent was signed, the patient was taken to the operating room, placed in a dorsal lithotomy position with the genital area prepped and draped in the usual surgical sterile fashion. Based on his prior urine cultures, I did provide Levaquin and Zosyn. Left KIMI hose and SCD was placed as he has a right AKA. We started the procedure with a 26-Honduran resectoscope with a visual obturator. There was no evidence of urethral stricture. Prostate appeared within normal limits. Upon entering the bladder, there was no bladder mucosa visualized due to a large bladder clot. Using an Ellik evacuator, we Ellik evacuated a large bladder clot. This took quite some time as the clot was very large and adherent. After evacuation of all blood clots, we surveyed the bladder looking for discrete bleed. Biopsy site at the dome was noted. The surface area appeared to be approximately 2-3 cm. There was an active oozing from the bed of the tumor. The area did appear somewhat thin. Therefore, I did not aggressively coagulate; however, was able to coagulate what was contributing to the active bleeding. We then surveyed the rest of the bladder which demonstrated intermittent area of patchy oozing consistent with prior BCG. 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 I did, however, find an active bleeding vessel arterial nature in the left lateral bladder neck region. This was well away from the UOs bilaterally. We fulgurated the site and resolution of bleeding was noted. A 22-Honduran three- way Yadav catheter was inserted, 30 mL insufflated. CBI at a light rate demonstrated pink vesta urine. He will be monitored with CBI. Anticipate patient will be in house over the weekend. The patient is not a candidate to restart his Plavix and aspirin anticoagulation due to presenting clot retention. continue antibiotics. ADRIAN
[2017-12-05] MEDS ORDERED: Ondansetron HCl/PF 4 MG/2 ML Vial ONE (16:16)
[2017-12-05] MEDS ORDERED: PROPOFOL 200 MG/20 ML VIAL ONE (16:16)
[2017-12-05] MEDS ORDERED: Glycopyrrolate 0.2 MG/ML 5 ML SYRINGE ONE (16:16)
[2017-12-05] MEDS ORDERED: Lidocaine 1% PF 5 ML VIAL ONE (16:16)
[2017-12-05] MEDS: Insulin Regular 300 UNITS/3 ML VIAL SC PRN ×2 (17:58→21:34)
[2017-12-05] MEDS ORDERED: Famotidine/PF 20 mg/2ml Vial SLOW IVP SCH (21:00)
[2017-12-05] MEDS: Docusate 100 MG CAP PO SCH (21:31)
[2017-12-05] MEDS: Glimepiride 2 MG TAB PO SCH (21:32)
[2017-12-05] MEDS: Tamsulosin HCl 0.4 MG CAP PO SCH (21:32)
[2017-12-05] MEDS ORDERED: Famotidine 20 MG TAB PO SCH (22:30)
[2017-12-05] MEDS ORDERED: Chloraseptic Spray 180 ml Bottle PO PRN (22:57)
[2017-12-06 02:18] LABS: #Eosinphils 0.2 thou/uL (0.0-0.7); #Lymphocytes 2.5 thou/uL (1.20-3.40); #Monocytes 0.5 thou/uL (0.11-0.59); #Neutrophils 4.7 thou/uL (1.40-6.50); %Basophils 0.2 % (0.0-1.0); %Eosinophils 2.6 % (0.0-10.0); %Lymphocytes 31.1 % (21.0-51.0); %Monocytes 6.8 % (0.0-10.0); %Neutrophils 59.3 % (42.0-75.0); Hemoglobin 10.5 g/dL (14.0-18.0); Mean Corpuscular HGB CONC 35.4 g/dL (32.0-36.0); Mean Corpuscular Hemoglobin 31.5 pg (27.0-31.0); Mean Corpuscular Volume 89.2 fL (78.0-98.0); Mean Platelet Volume 6.7 fL (7.4-10.4); Platelet Count 155 thou/uL (130-400); RBC Distribution Width 11.6 % (11.5-14.5); Red Blood Cell (RBC) Count 3.33 mill/uL (4.70-6.10); White Blood Cell (WBC) Count 7.9 thou/uL (4.8-10.8)
[2017-12-06 02:38] LABS: Hemoglobin A1c 9.4 % (4.0-6.0)
[2017-12-06 02:43] LABS: Anion Gap 12 mmol/L (10-20); BUN (Urea Nitrogen) 13 mg/dL (8.4-25.7); Calc. Creatinine Clearance 82 mL/min (70-130); Calcium 8.8 mg/dL (7.8-10.44); Carbon Dioxide 28 mmol/L (23-31); Chloride 102 mmol/L (98-107); Estimated GFR-MDRD 75; Glucose 84 mg/dL (80-115); Potassium 3.7 mmol/L (3.5-5.1); Sodium 138 mmol/L (136-145)
[2017-12-06] MEDS: Hyoscyamine Sulfate SL 0.125 mg Tablet SL SCH ×4 (06:33→23:01)
[2017-12-06] MEDS: Amlodipine 5 MG TAB PO SCH (09:09)
[2017-12-06] MEDS: Tamsulosin HCl 0.4 MG CAP PO SCH ×2 (09:10→19:43)
[2017-12-06] MEDS: Famotidine 20 MG TAB PO SCH ×2 (09:10→19:43)
[2017-12-06] MEDS: Lisinopril 2.5 MG TAB PO SCH (09:10)
[2017-12-06] MEDS: Fluconazole 100 MG TAB PO SCH (09:10)
[2017-12-06] MEDS: Docusate 100 MG CAP PO SCH ×2 (09:10→19:43)
[2017-12-06] MEDS: Sodium Chloride 0.9% 1,000 ML IV SCH ×2 (09:11→16:35)
[2017-12-06] MEDS: Glimepiride 2 MG TAB PO SCH ×2 (09:11→19:43)
[2017-12-06] MEDS: cefTRIAXone\\ROCEPHIN 1 GM in Sodium Chloride 0.9% 100 ML IVPB SCH (11:21)
--- NOTE | 2017-12-06 11:21 | PDOC.PN ---
- Subjective Encounter Start Date: 12/06/17 Encounter Start Time: 11:19 Patient seen and examined. He has a h/o transitional cell bladder ca with recent cystoscopy and biopsy November 12. He developed outpatient urologic complications- bladder hematoma which has been removed by urology service. Doing well post-op. No acute events overnight. Patient has no complaints. - Objective MAR Reviewed: Yes Vital Signs & Weight: Vital Signs (12 hours) Temp Pulse Resp BP BP Pulse Ox 12/06/17 09:10 69 128/77 12/06/17 09:09 69 128/77 12/06/17 08:00 98.2 F 69 16 97 12/06/17 07:20 98.2 F 69 16 128/77 97 12/06/17 04:00 98.8 F 66 14 138/77 98 12/06/17 00:00 98.4 F 68 16 124/73 94 L I&O: 12/05/17 12/06/17 12/07/17 06:59 06:59 06:59 Output Total 2100 Balance -2100 Result Diagrams: 12/06/17 02:09 12/06/17 02:09 Additional Labs: Accuchecks 12/06/17 12/06/17 12/05/17 10:52 06:42 20:45 POC Glucose 216 H 121 H 240 H 12/05/17 16:28 POC Glucose 255 H Phys Exam - Physical Examination Constitutional: NAD HEENT: moist MMs, sclera anicteric Neck: supple, full ROM Respiratory: no wheezing, no rales, no rhonchi, clear to auscultation bilateral Cardiovascular: RRR, no significant murmur, no rub Gastrointestinal: soft, non-tender, no distention, positive bowel sounds Musculoskeletal: no edema, pulses present Neurological: non-focal, moves all 4 limbs Psychiatric: normal affect, A&O x 3 Skin: no rash, normal turgor Dx/Plan (1) Hematuria Code(s): R31.9 - HEMATURIA, UNSPECIFIED Status: Acute Qualifiers: Hematuria type: gross Qualified Code(s): R31.0 - Gross hematuria (2) Hematoma of bladder wall Code(s): S37.22XA - CONTUSION OF BLADDER, INITIAL ENCOUNTER Status: Acute Qualifiers: Encounter type: subsequent encounter Qualified Code(s): S37.22XD - Contusion of bladder, subsequent encounter (3) Diabetes type 2, controlled Code(s): E11.9 - TYPE 2 DIABETES MELLITUS WITHOUT COMPLICATIONS Status: Chronic Qualifiers: Diabetes mellitus oil heaterman insulin use: without retirement use Diabetes mellitus complication status: with hyperglycemia Qualified Code(s): E11.65 - Type 2 diabetes mellitus with hyperglycemia (4) Dyslipidemia Code(s): E78.5 - HYPERLIPIDEMIA, UNSPECIFIED Status: Chronic (5) Hypertension Code(s): I10 - ESSENTIAL (PRIMARY) HYPERTENSION Status: Chronic Qualifiers: Hypertension type: essential hypertension Qualified Code(s): I10 - Essential (primary) hypertension (6) PVD (peripheral vascular disease) Code(s): I73.9 - PERIPHERAL VASCULAR DISEASE, UNSPECIFIED Status: Chronic (7) Transitional cell bladder cancer Code(s): C67.9 - MALIGNANT NEOPLASM OF BLADDER, UNSPECIFIED Status: Acute - Plan cont current plan of care, plan discussed w/ family, starkey catheter, continue antibiotics, out of bed/ambulate, DVT proph w/SCDs Continue antibiotics Continue Amaryl and sliding scale insulin Hold ASA and Plavix. Review of Systems - Medications/Allergies Allergies/Adverse Reactions: Allergies Allergy/AdvReac Type Severity Reaction Status Date / Time metformin Allergy leg Verified 10/29/17 11:00 swelling Medications: Current Medications Hydrocodone Bitart/Acetaminophen ([place]don 7.5/325) 1 tab PO Q4H PRN PRN Reason: Moderate Pain (4-6) Hydrocodone Bitart/Acetaminophen (Corydon 7.5/325) 2 tab PO Q4H PRN PRN Reason: Severe Pain (7-10) Last Admin: 12/05/17 19:14 Dose: 2 tab Al Hydroxide/Mg Hydroxide (Maalox) 30 ml PO Q4H PRN PRN Reason: Indigestion Amlodipine Besylate ([facility]asc) [facility] [place] Last Admin: 12/06/17 09:09 Dose: 5 mg Atorvastatin Calcium (Lipitor) 20 mg PO HS [facility] Dextrose/Water (Dextrose 50%) 25 gm SLOW IVP PRN PRN PRN Reason: Hypoglycemia Diphenhydramine HCl (Benadryl) 25 mg IVP Q6H PRN PRN Reason: Itching Docusate Sodium (Colace) 100 mg PO BID [facility] Last Admin: 12/06/17 09:10 Dose: 100 mg Famotidine (Pepcid) 20 mg PO BID [facility] Last Admin: 12/06/17 09:10 Dose: 20 mg Fluconazole (Diflucan) 100 mg PO QAM [facility] Last Admin: 12/06/17 09:10 Dose: 100 mg Glimepiride (Amaryl) 2 mg PO BID [facility] Last Admin: 12/06/17 09:11 Dose: 2 mg Glucagon (Glucagon) 1 mg IM PRN PRN PRN Reason: Hypoglycemia Hydralazine HCl (Apresoline) 20 mg SLOW IVP Q4H PRN PRN Reason: SBP greater than 160/100 Hyoscyamine Sulfate (Levsin Sl) 0.25 mg SL Q6HR [facility] Last Admin: 12/06/17 06:33 Dose: 0.25 mg Ceftriaxone Sodium 1 gm/ (Sodium Chloride) 100 mls @ 200 mls/hr IVPB Q24HR [facility] Last Admin: 12/05/17 13:42 Dose: 100 mls Sodium Chloride (Normal Saline 0.9%) 1,000 mls @ 100 mls/hr IV .Q10H [facility] Last Admin: 12/06/17 09:11 Dose: 1,000 mls Dextrose/Water (D5w) 1,000 mls @ 0 mls/hr IV .Q0M PRN; As Directed PRN Reason: Hypoglycemia Insulin Human Regular (Humulin R) 0 units SC .MODERATE SLIDING SC PRN PRN Reason: Moderate Correctional Scale Last Admin: 12/05/17 21:34 Dose: 4 unit Lisinopril (Zestril) 2.5 mg PO [facility] Last Admin: 12/06/17 09:10 Dose: 2.5 mg Morphine Sulfate (Morphine) 2 mg IVP Q2H PRN PRN Reason: Moderate Pain (4-6) Morphine Sulfate (Morphine Sulfate) 4 mg IVP Q2H PRN PRN Reason: Severe Pain (7-10) Last Admin: 12/05/17 12:59 Dose: 4 mg Phenol (Chloraseptic [place] 180 Ml Bot) 0 ml PO PRN PRN PRN Reason: SORE THROAT Last Admin: 12/05/17 23:32 Dose: 2 spray Sodium Chloride (Flush - Normal Saline) 10 ml IVF PRN PRN PRN Reason: Saline Flush Tamsulosin HCl (Flomax) 0.4 mg PO DAILY [facility] Last Admin: 12/06/17 09:10 Dose: 0.4 mg Tamsulosin HCl (Flomax) 0.4 mg PO [facility] Last Admin: 12/05/17 21:32 Dose: 0.4 mg
[2017-12-06] MEDS: Insulin Regular 300 UNITS/3 ML VIAL SC PRN ×2 (11:23→17:46)
--- NOTE | 2017-12-06 12:28 | PRG ---
DATE OF SERVICE: 12/06/2017 SUBJECTIVE: The patient is feeling great this morning, extended family at bedside. PHYSICAL EXAMINATION: VITAL SIGNS: Stable. CBI going at a low rate, clear. ABDOMEN: Soft, nontender, nondistended. LABORATORY DATA: White count 7.9, hemoglobin 10.5, platelet 155. Creatinine 0.9, hemoglobin A1c is 9.4 on sliding scale insulin. IMPRESSION AND PLAN: 1. Mr. Almodovar is a pleasant 67-year-old male with history of testicular cancer in remission status post orchiectomy: 2. History of bladder cancer. 3. History of peripheral vascular disease, previously on chronic Plavix. 4. Current admission due to clot retention. Postop day #1 status post cystoscopy, evacuation of very large bladder clot, fulguration of multiple areas with active bleed. The patient currently doing well. continue CBI today, will hold the CBI tomorrow morning. Even if his urine output is clear, it would be prudent to discharge patient with an indwelling Yadav catheter. Urine culture is pending, continue Rocephin for now. Hold all anticoagulation including Plavix, due to presenting gross hematuria with clot retention. When his hematuria is resolved for a few days, he may be reinitiated on Plavix. Dr. Reynolds to resume his care tomorrow morning. ADRIAN
[2017-12-06] MEDS: HYDROcodone/Acetaminophen 7.5/325 mg Tablet PO PRN ×2 (13:34→19:42)
[2017-12-07] MEDS: HYDROcodone/Acetaminophen 7.5/325 mg Tablet PO PRN ×3 (02:30→20:55)
[2017-12-07 04:26] LABS: #Eosinphils 0.3 thou/uL (0.0-0.7); #Monocytes 0.6 thou/uL (0.11-0.59); #Neutrophils 4.7 thou/uL (1.40-6.50); %Eosinophils 3.7 % (0.0-10.0); %Lymphocytes 26.2 % (21.0-51.0); %Monocytes 7.9 % (0.0-10.0); %Neutrophils 62.2 % (42.0-75.0); Hemoglobin 9.1 g/dL (14.0-18.0); Mean Corpuscular HGB CONC 34.7 g/dL (32.0-36.0); Mean Corpuscular Hemoglobin 31.1 pg (27.0-31.0); Mean Corpuscular Volume 89.7 fL (78.0-98.0); Mean Platelet Volume 7.7 fL (7.4-10.4); Platelet Count 121 thou/uL (130-400); RBC Distribution Width 11.6 % (11.5-14.5); Red Blood Cell (RBC) Count 2.93 mill/uL (4.70-6.10); White Blood Cell (WBC) Count 7.5 thou/uL (4.8-10.8)
[2017-12-07 04:42] LABS: Anion Gap 8 mmol/L (10-20); BUN (Urea Nitrogen) 13 mg/dL (8.4-25.7); Calc. Creatinine Clearance 70 mL/min (70-130); Calcium 8.4 mg/dL (7.8-10.44); Carbon Dioxide 28 mmol/L (23-31); Chloride 105 mmol/L (98-107); Estimated GFR-MDRD 62; Glucose 154 mg/dL (80-115); Potassium 4.1 mmol/L (3.5-5.1); Sodium 137 mmol/L (136-145)
[2017-12-07] MEDS: Sodium Chloride 0.9% 1,000 ML IV SCH (05:07)
[2017-12-07] MEDS: Hyoscyamine Sulfate SL 0.125 mg Tablet SL SCH ×3 (05:07→18:36)
[2017-12-07] MEDS: Famotidine 20 MG TAB PO SCH ×2 (08:29→20:54)
[2017-12-07] MEDS: Lisinopril 2.5 MG TAB PO SCH (08:29)
[2017-12-07] MEDS: Docusate 100 MG CAP PO SCH ×2 (08:29→20:54)
[2017-12-07] MEDS: Tamsulosin HCl 0.4 MG CAP PO SCH ×2 (08:29→20:55)
[2017-12-07] MEDS: Amlodipine 5 MG TAB PO SCH (08:29)
[2017-12-07] MEDS: Fluconazole 100 MG TAB PO SCH (08:30)
[2017-12-07] MEDS: Glimepiride 2 MG TAB PO SCH ×2 (08:30→20:54)
[2017-12-07] MEDS: cefTRIAXone\\ROCEPHIN 1 GM in Sodium Chloride 0.9% 100 ML IVPB SCH (12:14)
--- NOTE | 2017-12-07 13:38 | PDOC.PN ---
- Subjective Encounter Start Date: 12/07/17 Encounter Start Time: 13:38 Patient seen and examined. He has a h/o transitional cell bladder ca with recent cystoscopy and biopsy November 12. He developed outpatient urologic complications- bladder hematoma which has been removed by urology service. Doing well post-op. No acute events overnight. Patient has no complaints. - Objective Vital Signs & Weight: Vital Signs (12 hours) Temp Pulse Resp BP Pulse Ox 12/07/17 11:22 98 F 82 16 128/76 97 12/07/17 08:00 98.1 F 75 16 12/07/17 07:22 98.1 F 75 16 144/75 H 97 12/07/17 03:15 98.3 F 67 16 110/70 97 I&O: 12/06/17 12/07/17 12/08/17 06:59 06:59 06:59 Intake Total 2400 Output Total 2100 5850 Balance -2100 -3450 Result Diagrams: 12/07/17 03:51 12/07/17 03:51 Additional Labs: Accuchecks 12/07/17 12/07/17 12/06/17 11:24 05:18 21:08 POC Glucose 214 H 140 H 142 H 12/06/17 16:36 POC Glucose 196 H Phys Exam - Physical Examination Constitutional: NAD HEENT: moist MMs, sclera anicteric Neck: supple, full ROM Respiratory: no wheezing, no rales, no rhonchi, clear to auscultation bilateral Cardiovascular: RRR, no significant murmur, no rub Gastrointestinal: soft, non-tender, no distention, positive bowel sounds Musculoskeletal: no edema, pulses present Neurological: non-focal, moves all 4 limbs Psychiatric: A&O x 3 Skin: no rash, normal turgor Dx/Plan (1) Hematuria Code(s): R31.9 - HEMATURIA, UNSPECIFIED Status: Acute Qualifiers: Hematuria type: gross Qualified Code(s): R31.0 - Gross hematuria (2) Hematoma of bladder wall Code(s): S37.22XA - CONTUSION OF BLADDER, INITIAL ENCOUNTER Status: Acute Qualifiers: Encounter type: subsequent encounter Qualified Code(s): S37.22XD - Contusion of bladder, subsequent encounter (3) Diabetes type 2, controlled Code(s): E11.9 - TYPE 2 DIABETES MELLITUS WITHOUT COMPLICATIONS Status: Chronic Qualifiers: Diabetes mellitus senior care insulin use: without senior care use Diabetes mellitus complication status: with hyperglycemia Qualified Code(s): E11.65 - Type 2 diabetes mellitus with hyperglycemia (4) Dyslipidemia Code(s): E78.5 - HYPERLIPIDEMIA, UNSPECIFIED Status: Chronic (5) Hypertension Code(s): I10 - ESSENTIAL (PRIMARY) HYPERTENSION Status: Chronic Qualifiers: Hypertension type: essential hypertension Qualified Code(s): I10 - Essential (primary) hypertension (6) PVD (peripheral vascular disease) Code(s): I73.9 - PERIPHERAL VASCULAR DISEASE, UNSPECIFIED Status: Chronic (7) Transitional cell bladder cancer Code(s): C67.9 - MALIGNANT NEOPLASM OF BLADDER, UNSPECIFIED Status: Acute - Plan cont current plan of care, starkey catheter, continue antibiotics Patient doing well. Hematuria resolved. Urology will discharge him with the starkey in place and will see him in clinic. Continue IVF, antihypertensives and diabetes management. He should start his ASA and Plavix a few days after discharge. Review of Systems - Medications/Allergies Allergies/Adverse Reactions: Allergies Allergy/AdvReac Type Severity Reaction Status Date / Time metformin Allergy leg Verified 10/29/17 11:00 swelling Medications: Current Medications Hydrocodone Bitart/Acetaminophen ([place] 7.5/325) 1 tab PO Q4H PRN PRN Reason: Moderate Pain (4-6) Last Admin: 12/07/17 02:30 Dose: 1 tab Hydrocodone Bitart/Acetaminophen ([place] 7.5/325) 2 tab PO Q4H PRN PRN Reason: Severe Pain (7-10) Last Admin: 12/06/17 13:34 Dose: 2 tab Al Hydroxide/Mg Hydroxide (Maalox) 30 ml PO Q4H PRN PRN Reason: Indigestion Amlodipine Besylate (Norvasc) 5 mg PO QAM [facility] Last Admin: 12/07/17 08:29 Dose: 5 mg Atorvastatin Calcium (Lipitor) 20 mg PO HS CRISTI Cephalexin (Keflex) 250 mg PO Q6HR [facility] Docusate Sodium (Colace) 100 mg PO BID [facility] Last Admin: 12/07/17 08:29 Dose: 100 mg Famotidine (Pepcid) 20 mg PO BID [facility] Last Admin: 12/07/17 08:29 Dose: 20 mg Fluconazole (Diflucan) 100 mg PO QAM [facility] Last Admin: 12/07/17 08:30 Dose: 100 mg Glimepiride (Amaryl) 2 mg PO BID [facility] Last Admin: 12/07/17 08:30 Dose: 2 mg Glucagon (Glucagon) 1 mg IM PRN PRN PRN Reason: Hypoglycemia Hyoscyamine Sulfate (Levsin Sl) 0.25 mg SL Q6HR [facility] Last Admin: 12/07/17 12:15 Dose: 0.25 mg Insulin Human Regular (Humulin R) 0 units SC .MODERATE SLIDING SC PRN PRN Reason: Moderate Correctional Scale Last Admin: 12/06/17 17:46 Dose: 2 unit Lisinopril (Zestril) 2.5 mg PO [facility] Last Admin: 12/07/17 08:29 Dose: 2.5 mg Phenol (Chloraseptic [place] 180 Ml Bot) 0 ml PO PRN PRN PRN Reason: SORE THROAT Last Admin: 12/05/17 23:32 Dose: 2 spray Sodium Chloride (Flush - Normal Saline) 10 ml IVF PRN PRN PRN Reason: Saline Flush Tamsulosin HCl (Flomax) 0.4 mg PO HS [facility] Last Admin: 12/06/17 19:43 Dose: 0.4 mg
[2017-12-07] MEDS: Insulin Regular 300 UNITS/3 ML VIAL SC PRN ×2 (15:46→21:01)
[2017-12-07] MEDS: Cephalexin 250 MG CAP PO SCH (18:36)
--- NOTE | 2017-12-07 21:22 | PRG ---
DATE OF SERVICE: 12/07/2017 SUBJECTIVE: The patient states he is feeling well. He denies any bladder spasms. He is having some catheter irritation, but otherwise has no other complaints today. His CBI is currently off. He has not yet been up out of bed, but is tolerating a regular diet. His pain is minimal. OBJECTIVE: VITAL SIGNS: Temperature 98.6, pulse 100, respirations 16, blood pressure 137/78, saturations 96% on room air. GENERAL: No apparent distress, communicative and alert. CARDIOVASCULAR: Mild sinus tachycardia, otherwise normal S1 and S2. CHEST: No increased work of breathing, clear anteriorly. ABDOMEN: Soft, nontender, nondistended, positive bowel sounds. GENITOURINARY: Yadav catheter in place, secured with StatLock with CBI off. Urine is completely dieter ar without any evidence of blood. EXTREMITIES: No clubbing, cyanosis or edema on the left lower extremity. 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 LABORATORY DATA: On laboratory evaluation, the full set of labs in the [facility] system, which I have reviewed. Of note, the patient's hemoglobin is 9.1 with a white count of 7.5. Creatinine is curren tly 1.18. ASSESSMENT AND PLAN: A 67-year-old male with severe hematuria and clot retention from unkno wn origin. Per Dr. Sidhu's note, he apparently had an arterial bleeder at the bladder neck whi ch may have occurred secondary to BCG treatments, spontaneous bleed or benign prostate hypertrophy. For now, it appears that this has been adequately controlled. I would recommend still holding his as pirin and Plavix for the time being and would like the patient to ambulate this evening. If he has n o evidence of hematuria on his ambulation, he can probably be discharged with a Yadav catheter. Give n his significant bladder distention, I would recommend keeping the catheter in for at least 7 days a t which time we will remove the catheter for a voiding trial and then I will perform a cystoscopy at that time. Assuming nothing is found on cystoscopy, out of concern, we may discuss initiation of fin asteride to lower the patient's future risk of bleeding. After the patient has had clear urination a t home for 48 hours, I can have the patient restart his aspirin and subsequently his Plavix as he russo s need these for his vascular graft. I will continue to monitor this patient. His IV is infiltrated , therefore, I will stop all his IV medications and just use oral medications only. The patient's ur ine culture was growing 5000 Streptococcus, which may be a contaminant. Nonetheless, I will go ahead and put him on Keflex and stop his Rocephin for the time being.
[2017-12-08] MEDS: Hyoscyamine Sulfate SL 0.125 mg Tablet SL SCH ×2 (00:29→05:32)
[2017-12-08] MEDS: Cephalexin 250 MG CAP PO SCH ×2 (00:29→05:32)
[2017-12-08 04:29] VITALS: BP 123/75; TEMP 98.5
[2017-12-08] MEDS: Insulin Regular 300 UNITS/3 ML VIAL SC PRN (06:33)
[2017-12-08] MEDS: Famotidine 20 MG TAB PO SCH (08:58)
[2017-12-08] MEDS: Lisinopril 2.5 MG TAB PO SCH (08:58)
[2017-12-08] MEDS: Docusate 100 MG CAP PO SCH (08:59)
[2017-12-08] MEDS: Fluconazole 100 MG TAB PO SCH (08:59)
[2017-12-08] MEDS: Amlodipine 5 MG TAB PO SCH (08:59)
[2017-12-08] MEDS: Glimepiride 2 MG TAB PO SCH (09:02)
--- NOTE | 2017-12-08 09:24 | PRG ---
DATE OF SERVICE: 12/08/2017 SUBJECTIVE: The patient states he is feeling well. He has had a few occasional bladder spasms, but nothing severe. He was able to ambulate yesterday well with his prosthesis and the family stated the re was no blood within the urine during that time. He is not having any other complaints currently. OBJECTIVE: VITAL SIGNS: Temperature 98.5, pulse 70, respirations 12, blood pressure 122/75, saturation 97% on r oom air. GENERAL: No apparent distress, communicative and alert. CARDIOVASCULAR: Regular rate and rhythm. CHEST: No increased work of breathing. ABDOMEN: Soft, nontender, nondistended. GENITOURINARY: Yadav catheter in place draining clear yellow urine. No CBI, inflow CBI port is curr ently capped and catheter secured with a StatLock. EXTREMITIES: Right AKA. No clubbing, cyanosis or edema in the left lower extremity. ASSESSMENT AND PLAN: A 67-year-old male with clot retention and gross hematuria with now cl ear urine. I think the patient can be discharged home. I would recommend that he stay off of his as pirin and Plavix for at least 48 hours more at which time if there is no blood in his urine during th at time period he may restart his aspirin first and then his Plavix. I will set up his followup appo intment to see me for a void trial on Thursday and set him up for a cystoscopy subsequently from there. I will leave him on Keflex antibiotics for 4 additional days to complete 7 days of antibiotics. I am okay with the patient being discharged at this point. I will sign off.
--- NOTE | 2017-12-08 18:49 | DIS ---
DATE OF ADMISSION: 12/05/2017 DATE OF DISCHARGE: 12/08/2017 DISCHARGE DIAGNOSES: Bladder hematoma with hematuria; diabetes, type 2, controlled; dyslipidemia; hy pertension; peripheral vascular disease; transitional bladder cancer. HISTORY OF PRESENT ILLNESS/HOSPITAL COURSE: Mr. Almodovar is a 67-year-old male with a past medical hi story of hypertension, hyperlipidemia, transitional cell bladder cancer, AAA, type 2 diabetes, periph eral vascular disease and hiatal hernia, who presented to the emergency room with hematuria which sta rted on before he came on admission. He had one episode that day and he attributed to his r ecent urological procedure about 2 weeks ago where a biopsy was taken for his transitional cell bladd er cancer, so he did not do anything about it since it resolved. Then, 2 days later, he developed pe rsistent hematuria with multiple blood clots. Due to his worsening symptoms, he called his urologist , who told him to go to the emergency room. At the emergency room, his vital signs were stable. His hemoglobin was 10.8 and urinalysis revealed bloody urine with large amount of rbc's. He was immedia tely taken to have a CT of his abdomen/pelvis which showed a large bladder hematoma with active extra vasation into the urinary bladder and also a nonobstructive renal calcification and cholelithiasis. Urology was consulted and the patient was taken to the OR immediately for removal of his hematoma. D ue to his history of also complained of urinary retention, he was placed on a Yadav catheter. He was monitored while in the hospital with hydration and flushing. The patient's hemoglobin remained stab le and the patient was deemed stable for discharge. Urology recommended him being discharged with hi s Yadav catheter in place and they will follow him up in clinic to remove it on his next appointment. He is to stay off his aspirin and Plavix for at least 48 hours more and at which time if there is n o blood in his urine during that time, he may start aspirin first and then later on start with the Pl avix. He has an appointment scheduled for this coming Thursday from which a cystoscopy will be schedul ed from then. He is discharged on Keflex for additional 4 days from the day of discharge to complete a 7-day therapy. DISCHARGE MEDICATIONS: Keflex 250 mg every 6 hours, lisinopril 2.5 mg every morning, glimepiride 2 m g twice a day, atorvastatin 20 mg at bedtime, fluconazole 100 mg every morning, tamsulosin 0.4 mg at bedtime, amlodipine 5 mg every morning. PHYSICAL EXAMINATION: He was seen and examined on the day of discharge. VITAL SIGNS: Temperature 98.5 degrees Fahrenheit, pulse rate 70, respiratory rate 12, oxygen saturat ion 97% on room air, blood pressure 123/75. GENERAL: Not in acute distress. He is lying comfortably in bed. HEENT: Moist mucous membranes, anicteric. NECK: Supple, full range of movement. RESPIRATORY: No wheezes, rales or rhonchi. Clear to auscultation bilaterally. CARDIOVASCULAR: Regular rate and rhythm. No murmurs, rubs or gallops. S1 and S2 only. GASTROINTESTINAL: Soft, nontender, nondistended. Bowel sounds normoactive. Yadav catheter in place . MUSCULOSKELETAL: No edema. Pulses present. NEUROLOGICAL: Nonfocal. Alert and well oriented to time, place and person. PSYCHIATRIC: Normal mood and affect. SKIN: Warm, dry, and well perfused. No rashes or lesions. LABORATORY DATA: WBC 7.5, hemoglobin 9.1, platelet count 121. Sodium 127, potassium 4.1, chloride 1 05, carbon dioxide 28, anion gap 8, BUN 13, creatinine 1.18, glucose 154, calcium 8.4. IMAGING: CT abdomen/pelvis: As reported in the HPI. CONSULTS: Urology. CONDITION AT DISCHARGE: Stable and improved. PROCEDURES: Cystoscopy, evacuation of large bladder clots, fulguration of bleed, and three-way Yadav catheter placed with bladder irrigation. DIET: Heart healthy, diabetic. ACTIVITY: Resume as tolerated. CARE GOALS: He is to follow up with Urology this Thursday in clinic. Aspirin and Plavix instructions are as stated in the HPI. Discharge time 65 minutes including chart review and documentation.
[2017-12-12] MEDS ORDERED: Atorvastatin Calcium 20 MG TAB PO SCH (21:00)
== END 2017-12-08 11:16 | disposition home or self-care (01) | DRG 669 ==
LOC: ERS 07:34 → SURG A 11:25
PROVIDERS: ADMIT Internal Medicine; ATTEND Urology
PROC: 0T5B8ZZ Destruction of Bladder, Via Natural or Artificial Opening Endoscopic (ICD-10-PCS; principal; 2017-12-05)
PROC: 0TCB8ZZ Extirpation of Matter from Bladder, Via Natural or Artificial Opening Endoscopic (ICD-10-PCS; 2017-12-05)
PROC: 0T5B8ZZ Destruction of Bladder, Via Natural or Artificial Opening Endoscopic (ICD-10-PCS; 2017-12-05)
DX: R31.0 Gross hematuria (principal); S37.22XA Contusion of bladder, initial encounter; E11.9 Type 2 diabetes mellitus without complications; I73.9 Peripheral vascular disease, unspecified; Z85.47 Personal history of malignant neoplasm of testis; N20.0 Calculus of kidney; K80.20 Calculus of gallbladder without cholecystitis without obstruction; Z79.899 Other long term (current) drug therapy; Z79.82 Long term (current) use of aspirin; Z79.02 Long term (current) use of antithrombotics/antiplatelets; I10 Essential (primary) hypertension; E78.5 Hyperlipidemia, unspecified; Z85.51 Personal history of malignant neoplasm of bladder; Z88.8 Allergy status to other drugs, medicaments and biological substances; C67.9 Malignant neoplasm of bladder, unspecified
CPT/HCPCS: 36415; 36416; 74178; 80048; 81001; 81003; 81015; 83036; 85025; 85610; 85730; 86850; 86900; 86901; 87086; 88304; 99285; J0696; J1170; J1815; J2001; J2250; J2270; J2405; J2543; J2704; J3010; J7050; S0028

== ENCOUNTER 2020-11-19 08:02 | Outpatient (CLI) | payer MEDICARE ==
[2020-11-19] MEDS ORDERED: Iopamidol-370 76% 500 ML 1 ML ONE (08:52)
== END 2020-11-19 08:03 | disposition home or self-care (01) ==
LOC: BICCT 08:02
DX: I73.9 Peripheral vascular disease, unspecified (principal); I70.1 Atherosclerosis of renal artery; N20.0 Calculus of kidney; N28.89 Other specified disorders of kidney and ureter; K80.20 Calculus of gallbladder without cholecystitis without obstruction; K82.8 Other specified diseases of gallbladder; K86.89 Other specified diseases of pancreas
CPT/HCPCS: 74174; 82565; Q9967

== ENCOUNTER 2021-03-22 08:25 | Outpatient (CLI) | payer MEDICARE ==
[2021-03-22] MEDS ORDERED: Iopamidol 370 76% 100 ML VIAL ONE (11:59)
== END 2021-03-22 08:26 | disposition home or self-care (01) ==
LOC: CT 08:25
PROVIDERS: ATTEND Internal Medicine Hematology & Oncology
DX: C25.0 Malignant neoplasm of head of pancreas (principal); K82.4 Cholesterolosis of gallbladder; K82.8 Other specified diseases of gallbladder; N28.89 Other specified disorders of kidney and ureter; I70.90 Unspecified atherosclerosis; K76.0 Fatty (change of) liver, not elsewhere classified; K43.9 Ventral hernia without obstruction or gangrene; I77.1 Stricture of artery; K57.30 Diverticulosis of large intestine without perforation or abscess without bleeding; N20.0 Calculus of kidney; K86.89 Other specified diseases of pancreas
CPT/HCPCS: 71260; 74177; 82565; Q9967

== ENCOUNTER 2021-06-08 23:55 | Emergency (ER) | payer MEDICARE | END 2021-06-09 03:20 | disposition home or self-care (01) | LOC: ERS 23:55 | DX: L76.34 Postprocedural seroma of skin and subcutaneous tissue following other procedure (principal); I10 Essential (primary) hypertension; E11.9 Type 2 diabetes mellitus without complications; E78.5 Hyperlipidemia, unspecified; E78.00 Pure hypercholesterolemia, unspecified; Z79.82 Long term (current) use of aspirin; Z79.899 Other long term (current) drug therapy | CPT/HCPCS: 74176 ==

== ENCOUNTER 2021-10-17 13:21 | Outpatient (CLI) | payer MEDICARE | END 2021-10-17 13:22 | disposition home or self-care (01) | LOC: BICCT 13:21 | PROVIDERS: ATTEND Internal Medicine Hematology & Oncology | DX: C25.0 Malignant neoplasm of head of pancreas (principal); K86.89 Other specified diseases of pancreas; I25.10 Atherosclerotic heart disease of native coronary artery without angina pectoris; N20.0 Calculus of kidney; N32.89 Other specified disorders of bladder; I70.90 Unspecified atherosclerosis; R19.00 Intra-abdominal and pelvic swelling, mass and lump, unspecified site; S72.011A Unspecified intracapsular fracture of right femur, initial encounter for closed fracture; Z98.890 Other specified postprocedural states; Z90.49 Acquired absence of other specified parts of digestive tract | CPT/HCPCS: 71260; 74177; 80053; 84443 ==

== ENCOUNTER 2021-11-30 18:46 | Emergency (ER) | payer MEDICARE, OTHER ==
[2021-11-30] MEDS ORDERED: Pantoprazole 40 MG VIAL ONE (19:54)
[2021-11-30 19:59] LABS: Hemoglobin 8.8 g/dL (14.0-18.0); Mean Corpuscular HGB CONC 35.4 g/dL (32.0-36.0); Mean Corpuscular Volume 90.2 fL (78.0-98.0); Mean Platelet Volume 8.5 fL (7.4-10.4); Platelet Count 98 thou/uL (130-400); RBC Distribution Width 16.7 % (11.5-14.5); Red Blood Cell (RBC) Count 2.74 mill/uL (4.70-6.10); White Blood Cell (WBC) Count 15.5 thou/uL (4.8-10.8)
[2021-11-30 20:13] LABS: Anisocytosis SLIGHT = 6-15 cells (100X) (0-5/hpf); Band 4 % (5-11); Lymphocytes 13 % (21-51); MDiff Complete? YES; Monocytes 2 % (0-10); Neutrophil 81 % (42-75); Platelet Morphology Comment Appears Decreased; Polychromasia SLIGHT = 2-3 cells (100X) (0-2/hpf)
[2021-11-30 20:18] LABS: ALT (SGPT) 29 U/L (8-55); AST (SGOT) 24 U/L (5-34); Albumin 3.3 g/dL (3.4-4.8); Alkaline Phosphatase 113 U/L (40-110); Anion Gap 17 mmol/L (10-20); BUN (Urea Nitrogen) 42 mg/dL (8.4-25.7); Bilirubin, Total 0.3 mg/dL (0.2-1.2); Calc. Creatinine Clearance 0 mL/min (70-130); Calcium 8.2 mg/dL (7.8-10.44); Carbon Dioxide 21 mmol/L (23-31); Chloride 101 mmol/L (98-107); Globulin 2.9 g/dL (2.4-3.5); Glucose 362 mg/dL (83-110); Potassium 4.2 mmol/L (3.5-5.1); Protein, Total 6.2 g/dL (5.8-8.1); Sodium 135 mmol/L (136-145)
== END 2021-11-30 22:46 | disposition home or self-care (01) ==
LOC: ERS 18:46
DX: K92.1 Melena (principal); I10 Essential (primary) hypertension; E11.9 Type 2 diabetes mellitus without complications; E78.5 Hyperlipidemia, unspecified; E78.00 Pure hypercholesterolemia, unspecified; K46.9 Unspecified abdominal hernia without obstruction or gangrene; Z85.51 Personal history of malignant neoplasm of bladder; Z85.07 Personal history of malignant neoplasm of pancreas; Z79.82 Long term (current) use of aspirin; Z79.899 Other long term (current) drug therapy
CPT/HCPCS: 80053; 82274; 85025; 85652; 85730; 86850; 86900; 86901; C9113

== ENCOUNTER 2021-12-02 11:47 | Inpatient (IN) | payer OTHER ==
[2021-12-02 13:07] LABS: Hemoglobin 6.7 g/dL (14.0-18.0); INR-International Normal Ratio 1.2; Mean Corpuscular HGB CONC 32.1 g/dL (32.0-36.0); Mean Corpuscular Volume 90.5 fL (78.0-98.0); Mean Platelet Volume 8.4 fL (7.4-10.4); Platelet Count 62 thou/uL (130-400); Prothrombin Time 15.2 sec (12.0-14.7); RBC Distribution Width 16.7 % (11.5-14.5); Red Blood Cell (RBC) Count 2.32 mill/uL (4.70-6.10)
[2021-12-02 13:15] LABS: ALT (SGPT) 21 U/L (8-55); AST (SGOT) 20 U/L (5-34); Albumin 3.2 g/dL (3.4-4.8); Alkaline Phosphatase 144 U/L (40-110); Anion Gap 14 mmol/L (10-20); BUN (Urea Nitrogen) 25 mg/dL (8.4-25.7); Bilirubin, Total 0.2 mg/dL (0.2-1.2); CK (CPK) 64 U/L (30-200); Calc. Creatinine Clearance 0 mL/min (70-130); Calcium 7.9 mg/dL (7.8-10.44); Carbon Dioxide 20 mmol/L (23-31); Chloride 103 mmol/L (98-107); Globulin 2.1 g/dL (2.4-3.5); Glucose 275 mg/dL (83-110); Lipase 13 U/L (8-78); Potassium 3.9 mmol/L (3.5-5.1); Protein, Total 5.3 g/dL (5.8-8.1); Sodium 133 mmol/L (136-145)
[2021-12-02 13:31] LABS: MDiff Complete? YES
[2021-12-02 13:32] LABS: Band 4 % (5-11); Dohle Bodies SLIGHT; Lymphocytes 9 % (21-51); Neutrophil 87 % (42-75); Platelet Morphology Comment Appears Decreased; Polychromasia SLIGHT = 2-3 cells (100X) (0-2/hpf); Toxic Granulation SLIGHT
[2021-12-02] MEDS ORDERED: Cefepime 2 GM VIAL ONE ×2 (13:51→13:52)
[2021-12-02] MEDS ORDERED: Pantoprazole 40 MG VIAL ONE (13:51)
[2021-12-02 14:15] LABS: Bilirubin Negative (Negative); Blood, Urine Negative (Negative); Clarity Clear (Clear); Glucose, Urine (Dipstick) Greater than 1000 mg/dL (Negative); Ketone, Urine Negative (Negative); Leukocyte Negative Leu/uL (Negative); Nitrite Negative (Negative); Protein, Urine (Dipstick) Negative (Neg-Trace); Specific Gravity, Urine 1.015 (1.002-1.036); Urobilinogen Normal mg/dL (Less than 2)
[2021-12-02] MEDS ORDERED: Vancomycin 1 GM/200 ML BAG ONE (14:27)
[2021-12-02] MEDS ORDERED: Senokot S 8.6-50 MG TAB PO PRN (15:00)
[2021-12-02] MEDS ORDERED: Bisacodyl 5 MG TAB PO PRN (15:00)
[2021-12-02] MEDS ORDERED: Calcium Carbonate 500 MG ChewTAB PO PRN (15:00)
[2021-12-02] MEDS ORDERED: Acetaminophen 325 MG TAB PO PRN (15:00)
[2021-12-02] MEDS ORDERED: Ondansetron PF 4 MG/2 ML Vial IVP PRN (15:00)
[2021-12-02] MEDS ORDERED: Ondansetron ODT 4 MG TAB PO PRN (15:00)
[2021-12-02] MEDS ORDERED: Bisacodyl 10 MG SUPP PR PRN (15:00)
[2021-12-02 16:48] LABS: Lactic Acid 2.4 mmol/L (0.5-2.2)
[2021-12-02] MEDS ORDERED: HumaLOG 300 UNITS/3 ML VIAL SC PRN (16:49)
[2021-12-02] MEDS ORDERED: Dextrose 5% in Water 1,000 ML IV PRN (16:49)
[2021-12-02] MEDS ORDERED: Dextrose 50% Abboject 50 ML SYRINGE SLOW IVP PRN (16:49)
[2021-12-02 17:10] LABS: Reticulocyte Count 0.7 % (0.5-1.5)
[2021-12-02 17:26] LABS: Hemoglobin A1c 8.9 % (4.0-6.0); Iron 84 ug/dL (65-175); Iron Binding Capacity, Total 266 mcg/dL (261-462)
[2021-12-02 17:42] LABS: Ferritin 740.08 ng/mL (22-322); Thyroid Stimulating Hormone 3.2162 uIU/mL (0.35-4.94)
[2021-12-02] MEDS ORDERED: Octreotide Acetate 50 MCG/ML AMP SC SCH (19:00)
[2021-12-02] MEDS ORDERED: Octreotide Acetate 1,250 MCG in Sodium Chloride 0.9% 250 ML 250 ML IVPB SCH (19:00)
[2021-12-02 20:33] VITALS: BMI 22.1
[2021-12-02 21:20] LABS: SARS-CoV-2 NAA Rapid Test Not Detected (NotDetected)
[2021-12-02] MEDS: Pantoprazole 40 MG VIAL IVP SCH (21:43)
[2021-12-02] MEDS: Cefepime 2 GM in Sodium Chloride 0.9% 100 ML IVPB SCH (21:43)
[2021-12-03 05:17] LABS: INR-International Normal Ratio 1.2; PTT 28.4 sec (22.9-36.1); Prothrombin Time 15.1 sec (12.0-14.7)
[2021-12-03 05:26] LABS: Actual Bicarbonate (HCO3v) 26 mEq/L (22-28); Calcium, Ionized (venous) 1.09 mmol/L (1.16-1.32); Chloride (VBG) 102 mmol/L (98-106); Hemoglobin (Hb) 9.8 g/dL (12.6-17.4); Potassium (VBG) 4.35 mmol/L (3.70-5.30); Sodium 131.6 mmol/L (133-146); pH (venous) 7.39 (7.32-7.43)
[2021-12-03 05:34] LABS: Band 16 % (5-11); Dohle Bodies SLIGHT; Hemoglobin 9.2 g/dL (14.0-18.0); Lymphocytes 2 % (21-51); MDiff Complete? YES; Mean Corpuscular HGB CONC 33.1 g/dL (32.0-36.0); Mean Corpuscular Hemoglobin 29.9 pg (27.0-31.0); Mean Corpuscular Volume 90.3 fL (78.0-98.0); Mean Platelet Volume 8.3 fL (7.4-10.4); Monocytes 1 % (0-10); Neutrophil 81 % (42-75); Platelet Count 42 thou/uL (130-400); Platelet Morphology Comment Appears Decreased; RBC Distribution Width 15.6 % (11.5-14.5); Red Blood Cell (RBC) Count 3.08 mill/uL (4.70-6.10); White Blood Cell (WBC) Count 43.3 thou/uL (4.8-10.8)
[2021-12-03 05:48] LABS: ALT (SGPT) 20 U/L (8-55); AST (SGOT) 20 U/L (5-34); Alkaline Phosphatase 159 U/L (40-110); Bilirubin, Direct 0.3 mg/dL (0.1-0.3); Bilirubin, Total 0.6 mg/dL (0.2-1.2); Cardiac Risk 3.2 (Less than 4.5); Cholesterol 131 mg/dl (< 200 Desired); HDL Cholesterol 41 mg/dL (>60 Neg Risk); LDL Cholesterol, Calculated 46 mg/dL; Magnesium 1.8 mg/dL (1.6-2.6); Protein, Total 5.3 g/dL (5.8-8.1); Triglycerides 218 mg/dL (Less than 150)
[2021-12-03] MEDS: Cefepime 2 GM in Sodium Chloride 0.9% 100 ML IVPB SCH ×2 (06:00→14:25)
[2021-12-03 06:24] LABS: ALT (SGPT) 19 U/L (8-55); AST (SGOT) 19 U/L (5-34); Albumin 3.1 g/dL (3.4-4.8); Alkaline Phosphatase 151 U/L (40-110); Anion Gap 10 mmol/L (10-20); BUN (Urea Nitrogen) 15 mg/dL (8.4-25.7); Bilirubin, Direct 0.3 mg/dL (0.1-0.3); Bilirubin, Total 0.6 mg/dL (0.2-1.2); Calc. Creatinine Clearance 76 mL/min (70-130); Carbon Dioxide 24 mmol/L (23-31); Chloride 103 mmol/L (98-107); Glucose 224 mg/dL (83-110); Potassium 4.4 mmol/L (3.5-5.1); Protein, Total 5.1 g/dL (5.8-8.1); Sodium 133 mmol/L (136-145)
[2021-12-03] MEDS: Pantoprazole 40 MG VIAL IVP SCH ×2 (09:38→20:53)
[2021-12-03] MEDS: Pancrelipase DR 12,000 1 CAP PO SCH ×2 (12:03→17:28)
[2021-12-03] MEDS: HumaLOG 300 UNITS/3 ML VIAL SC PRN (17:24)
[2021-12-04] MEDS: HumaLOG 300 UNITS/3 ML VIAL SC PRN ×2 (05:52→11:57)
[2021-12-04 05:55] LABS: ALT (SGPT) 16 U/L (8-55); AST (SGOT) 20 U/L (5-34); Albumin 3.2 g/dL (3.4-4.8); Alkaline Phosphatase 193 U/L (40-110); Anion Gap 11 mmol/L (10-20); BUN (Urea Nitrogen) 13 mg/dL (8.4-25.7); Bilirubin, Total 0.5 mg/dL (0.2-1.2); Calc. Creatinine Clearance 69 mL/min (70-130); Calcium 8.4 mg/dL (7.8-10.44); Carbon Dioxide 27 mmol/L (23-31); Chloride 101 mmol/L (98-107); Globulin 2.4 g/dL (2.4-3.5); Glucose 158 mg/dL (83-110); Magnesium 1.9 mg/dL (1.6-2.6); Protein, Total 5.6 g/dL (5.8-8.1); Sodium 135 mmol/L (136-145)
[2021-12-04 06:20] LABS: Anisocytosis SLIGHT = 6-15 cells (100X) (0-5/hpf); Band 25 % (5-11); Eosinophils 2 % (0-10); Hemoglobin 9.5 g/dL (14.0-18.0); Lymphocytes 6 % (21-51); MDiff Complete? YES; Mean Corpuscular HGB CONC 33.2 g/dL (32.0-36.0); Mean Corpuscular Volume 90.5 fL (78.0-98.0); Mean Platelet Volume 9.5 fL (7.4-10.4); Monocytes 4 % (0-10); Neutrophil 61 % (42-75); Platelet Count 43 thou/uL (130-400); Platelet Morphology Comment Appears Decreased; RBC Distribution Width 15.4 % (11.5-14.5); Reactive Lymphocytes 2 % (0-10); Red Blood Cell (RBC) Count 3.17 mill/uL (4.70-6.10); White Blood Cell (WBC) Count 17.1 thou/uL (4.8-10.8)
[2021-12-04] MEDS: Pancrelipase DR 12,000 1 CAP PO SCH ×2 (08:21→12:50)
[2021-12-04] MEDS: Pantoprazole 40 MG VIAL IVP SCH (08:21)
[2021-12-04 08:45] VITALS: BP 117/46; TEMP 98.2
== END 2021-12-04 16:54 | disposition home or self-care (01) | DRG 378 ==
LOC: ERS 11:47 → ERHOLD 14:30 → MSONC 19:35
PROVIDERS: ADMIT Family Medicine; ATTEND Hospitalist
PROC: 30233N1 Transfusion of Nonautologous Red Blood Cells into Peripheral Vein, Percutaneous Approach (ICD-10-PCS; 2021-12-02)
PROC: 0DB98ZX Excision of Duodenum, Via Natural or Artificial Opening Endoscopic, Diagnostic (ICD-10-PCS; principal; 2021-12-03)
PROC: 0DB68ZX Excision of Stomach, Via Natural or Artificial Opening Endoscopic, Diagnostic (ICD-10-PCS; 2021-12-03)
DX: K26.4 Chronic or unspecified duodenal ulcer with hemorrhage (principal); C25.9 Malignant neoplasm of pancreas, unspecified; D62 Acute posthemorrhagic anemia; E87.2 Acidosis; E87.1 Hypo-osmolality and hyponatremia; K25.4 Chronic or unspecified gastric ulcer with hemorrhage; E78.5 Hyperlipidemia, unspecified; E78.00 Pure hypercholesterolemia, unspecified; I10 Essential (primary) hypertension; D69.6 Thrombocytopenia, unspecified; E11.51 Type 2 diabetes mellitus with diabetic peripheral angiopathy without gangrene; I95.9 Hypotension, unspecified; Z20.822 Contact with and (suspected) exposure to COVID-19; E11.65 Type 2 diabetes mellitus with hyperglycemia; T45.1X5A Adverse effect of antineoplastic and immunosuppressive drugs, initial encounter; Y92.9 Unspecified place or not applicable; Z90.49 Acquired absence of other specified parts of digestive tract; Z89.611 Acquired absence of right leg above knee; Z88.8 Allergy status to other drugs, medicaments and biological substances; Z79.4 Long term (current) use of insulin; Z79.82 Long term (current) use of aspirin; Z79.899 Other long term (current) drug therapy; K46.9 Unspecified abdominal hernia without obstruction or gangrene; Z85.51 Personal history of malignant neoplasm of bladder
CPT/HCPCS: 36415; 36416; 36430; 71045; 76705; 80053; 80061; 81003; 82248; 82274; 82550; 82728; 82805; 82977; 83036; 83540; 83550; 83605; 83690; 83735; 83880; 84443; 84484; 85025; 85046; 85610; 85652; 85730; 86850; 86900; 86901; 87040; 88305; 88342; 93005; 96361; 96365; 96367; 96374; 96375; C9113; J0692; J1815; J2354; J3370; J3490; J7050; P9016; U0002

== ENCOUNTER 2022-01-17 08:00 | Outpatient (CLI) | payer OTHER ==
[2022-01-17] MEDS ORDERED: Iopamidol-370 76% 500 ML 1 ML ONE (10:35)
== END 2022-01-17 08:01 | disposition home or self-care (01) ==
LOC: BICCT 08:00
PROVIDERS: ATTEND Internal Medicine Hematology & Oncology
DX: C25.9 Malignant neoplasm of pancreas, unspecified (principal)
CPT/HCPCS: 71260; 74177; Q9967

== ENCOUNTER 2022-04-29 07:56 | Outpatient (CLI) | payer OTHER ==
[2022-04-29] MEDS ORDERED: Iopamidol-370 76% 500 ML 1 ML ONE (08:42)
== END 2022-04-29 07:57 | disposition home or self-care (01) ==
LOC: BICCT 07:56
PROVIDERS: ATTEND Internal Medicine Hematology & Oncology
DX: C25.9 Malignant neoplasm of pancreas, unspecified (principal); R91.8 Other nonspecific abnormal finding of lung field; I70.0 Atherosclerosis of aorta; N32.89 Other specified disorders of bladder; N40.0 Benign prostatic hyperplasia without lower urinary tract symptoms
CPT/HCPCS: 71260; 74177; Q9967

== ENCOUNTER 2022-06-24 07:21 | Outpatient (CLI) | payer OTHER ==
[2022-06-24] MEDS ORDERED: Iopamidol 370 76% 100 ML VIAL ONE (07:48)
== END 2022-06-24 07:22 | disposition home or self-care (01) ==
LOC: CT 07:21
PROVIDERS: ATTEND Internal Medicine Hematology & Oncology
DX: C25.9 Malignant neoplasm of pancreas, unspecified (principal)
CPT/HCPCS: 71260; 74177; Q9967

== ENCOUNTER 2022-08-05 07:03 | Inpatient (IN) | payer OTHER ==
[2022-08-05 08:22] LABS: ALT (SGPT) 20 U/L (8-55); AST (SGOT) 16 U/L (5-34); Albumin 3.5 g/dL (3.4-4.8); Alkaline Phosphatase 158 U/L (40-110); Anion Gap 12 mmol/L (10-20); BUN (Urea Nitrogen) 17 mg/dL (8.4-25.7); Bilirubin, Total 0.5 mg/dL (0.2-1.2); Calc. Creatinine Clearance 0 mL/min (70-130); Calcium 9.1 mg/dL (7.8-10.44); Carbon Dioxide 24 mmol/L (23-31); Chloride 104 mmol/L (98-107); Estimated GFR 93; Globulin 2.9 g/dL (2.4-3.5); Glucose 148 mg/dL (83-110); Potassium 3.7 mmol/L (3.5-5.1); Protein, Total 6.4 g/dL (5.8-8.1); Sodium 136 mmol/L (136-145)
[2022-08-05 08:38] LABS: Band 24 % (5-11); Eosinophils 2 % (0-10); Hemoglobin 9.2 g/dL (14.0-18.0); Lymphocytes 13 % (21-51); MDiff Complete? YES; Mean Corpuscular HGB CONC 33.8 g/dL (32.0-36.0); Mean Corpuscular Volume 94.6 fl (78.0-98.0); Mean Platelet Volume 9.4 fL (7.4-10.4); Monocytes 6 % (0-10); Neutrophil 54 % (42-75); Platelet Count 37 10x3/uL (130-400); Platelet Morphology Comment Appears Decreased; Polychromasia SLIGHT = 2-3 cells (100X) (0-2/hpf); Reactive Lymphocytes 1 % (0-10); Red Blood Cell (RBC) Count 2.87 mill/uL (4.70-6.10); White Blood Cell (WBC) Count 8.3 10x3/uL (4.8-10.8)
[2022-08-05] MEDS ORDERED: Pantoprazole 40 MG VIAL ONE (08:55)
[2022-08-05 12:05] LABS: SARS-CoV-2 NAA Rapid Test Not Detected (NotDetected)
[2022-08-05] MEDS ORDERED: Ondansetron PF 4 MG/2 ML Vial IVP PRN (13:34)
[2022-08-05] MEDS ORDERED: Acetaminophen 325 MG TAB PO PRN (13:34)
[2022-08-05] MEDS ORDERED: HumaLOG 300 UNITS/3 ML VIAL SC PRN ×2 (13:37)
[2022-08-05] MEDS ORDERED: Dextrose 50% Abboject 50 ML SYRINGE SLOW IVP PRN (13:37)
[2022-08-05] MEDS ORDERED: Dextrose 5% in Water 1,000 ML IV PRN (13:37)
[2022-08-05 15:24] LABS: Bacteria/HPF None Seen HPF (None Seen); Bilirubin Negative (Negative); Blood, Urine Trace (Negative); Clarity Clear (Clear); Glucose, Urine (Dipstick) Normal (Negative); Ketone, Urine Negative (Negative); Leukocyte Negative Leu/uL (Negative); Nitrite Negative (Negative); Protein, Urine (Dipstick) 30 mg/dL (Neg-Trace); Specific Gravity, Urine 1.019 (1.002-1.036); Squamous Epithelial 0-3 HPF (0-3); Urobilinogen Normal mg/dL (Less than 2); WBC/HPF 0-3 HPF (0-3); pH, Urine 5.5 (5.0-9.0)
[2022-08-05 17:23] VITALS: BMI 22.4
[2022-08-05] MEDS: Pancrelipase DR 12,000 1 CAP PO SCH (18:25)
[2022-08-05] MEDS: Sodium Chloride 0.9% 1,000 ML IV SCH (21:20)
[2022-08-05] MEDS: Atorvastatin Calcium 20 MG TAB PO SCH (21:21)
[2022-08-05] MEDS: Pantoprazole 40 MG VIAL IVP SCH (21:22)
[2022-08-06 08:44] LABS: Anion Gap 12 mmol/L (10-20); BUN (Urea Nitrogen) 11 mg/dL (8.4-25.7); Calc. Creatinine Clearance 83 mL/min (70-130); Calcium 8.9 mg/dL (7.8-10.44); Carbon Dioxide 24 mmol/L (23-31); Chloride 106 mmol/L (98-107); Estimated GFR 94; Glucose 105 mg/dL (83-110); Sodium 138 mmol/L (136-145)
[2022-08-06] MEDS: Pancrelipase DR 12,000 1 CAP PO SCH ×4 (08:56→17:09)
[2022-08-06] MEDS: Sodium Chloride 0.9% 1,000 ML IV SCH (08:56)
[2022-08-06] MEDS: Pantoprazole 40 MG VIAL IVP SCH (08:56)
[2022-08-06 09:26] LABS: Hemoglobin 8.7 g/dL (14.0-18.0); Mean Corpuscular HGB CONC 32.3 g/dL (32.0-36.0); Mean Corpuscular Hemoglobin 30.8 pg (27.0-31.0); Mean Corpuscular Volume 95.2 fl (78.0-98.0); Mean Platelet Volume 10.6 fL (7.4-10.4); Platelet Count 35 10x3/uL (130-400); RBC Distribution Width 16.2 % (11.5-14.5); Red Blood Cell (RBC) Count 2.81 mill/uL (4.70-6.10); White Blood Cell (WBC) Count 7.3 10x3/uL (4.8-10.8)
[2022-08-06 09:29] LABS: Band 18 % (5-11); Lymphocytes 13 % (21-51); MDiff Complete? YES; Monocytes 7 % (0-10); Neutrophil 62 % (42-75); Platelet Morphology Comment Appears Decreased; Polychromasia SLIGHT = 2-3 cells (100X) (0-2/hpf)
[2022-08-06] MEDS ORDERED: Lidocaine 1% PF 5 ML VIAL ONE (12:59)
[2022-08-06] MEDS ORDERED: PROPOFOL 200 MG/20 ML VIAL ONE (12:59)
[2022-08-06] MEDS ORDERED: Promethazine HCl 25 MG/ML VIAL IM PRN (13:23)
[2022-08-06] MEDS ORDERED: HYDROmorphone 2 MG/ML VIAL SLOW IVP PRN (13:23)
[2022-08-06] MEDS ORDERED: Ondansetron HCl/PF 4 MG/2 ML Vial IVP PRN (13:23)
[2022-08-06] MEDS ORDERED: Morphine Sulfate 2 MG/ML SYRINGE SLOW IVP PRN (13:23)
[2022-08-06] MEDS: Famotidine 20 MG TAB PO SCH (20:47)
[2022-08-06] MEDS: Atorvastatin Calcium 20 MG TAB PO SCH (20:48)
[2022-08-07] MEDS: Sodium Chloride 0.9% 1,000 ML IV SCH (06:40)
[2022-08-07 09:03] VITALS: BP 135/72; TEMP 98.2
[2022-08-07] MEDS: Pancrelipase DR 12,000 1 CAP PO SCH ×2 (09:07→09:08)
[2022-08-07] MEDS: Famotidine 20 MG TAB PO SCH (09:08)
== END 2022-08-07 12:10 | disposition home or self-care (01) | DRG 378 ==
LOC: ERS 07:03 → T4-B 10:32 → ERHOLD 10:32 → T4-B 15:20 → OBSVTOIN 08-07 09:00
PROVIDERS: ADMIT Family Medicine; ATTEND Internal Medicine
PROC: 0DJ08ZZ Inspection of Upper Intestinal Tract, Via Natural or Artificial Opening Endoscopic (ICD-10-PCS; principal; 2022-08-07)
DX: K92.1 Melena (principal); C78.89 Secondary malignant neoplasm of other digestive organs; E11.9 Type 2 diabetes mellitus without complications; I10 Essential (primary) hypertension; E78.00 Pure hypercholesterolemia, unspecified; K21.9 Gastro-esophageal reflux disease without esophagitis; D69.59 Other secondary thrombocytopenia; T45.1X5A Adverse effect of antineoplastic and immunosuppressive drugs, initial encounter; R10.13 Epigastric pain; Z90.49 Acquired absence of other specified parts of digestive tract; Z88.8 Allergy status to other drugs, medicaments and biological substances; Z79.84 Long term (current) use of oral hypoglycemic drugs; Z79.899 Other long term (current) drug therapy
CPT/HCPCS: 36415; 36416; 80048; 80053; 81003; 81015; 82274; 85025; 86850; 86900; 86901; 96374; 96376; 97139; C9113; G0378; J2704; J7050; U0002

== ENCOUNTER 2022-10-08 09:06 | Outpatient (CLI) | payer OTHER ==
[2022-10-08] MEDS ORDERED: Iopamidol 370 76% 100 ML VIAL ONE (10:49)
== END 2022-10-08 09:07 | disposition home or self-care (01) ==
LOC: CT 09:06
PROVIDERS: ATTEND Internal Medicine Hematology & Oncology
DX: C25.0 Malignant neoplasm of head of pancreas (principal); R91.1 Solitary pulmonary nodule; I70.1 Atherosclerosis of renal artery
CPT/HCPCS: 71260; 74177; Q9967

== ENCOUNTER 2023-02-19 07:15 | Outpatient (CLI) | payer OTHER ==
[2023-02-19] MEDS ORDERED: Iopamidol 370 76% 100 ML VIAL ONE (09:55)
== END 2023-02-19 07:16 | disposition home or self-care (01) ==
LOC: BICCT 07:15
PROVIDERS: ATTEND Internal Medicine Hematology & Oncology
DX: C25.0 Malignant neoplasm of head of pancreas (principal)
CPT/HCPCS: 71260; 74177; Q9967

== ENCOUNTER 2023-05-25 10:44 | Outpatient (CLI) | payer OTHER ==
[2023-05-25] MEDS ORDERED: Iopamidol-370 76% 500 ML MDV (1 ML CHARGE) ONE (14:26)
== END 2023-05-25 10:45 | disposition home or self-care (01) ==
LOC: BICCT 10:44
PROVIDERS: ATTEND Internal Medicine Hematology & Oncology
DX: C25.0 Malignant neoplasm of head of pancreas (principal); R91.1 Solitary pulmonary nodule
CPT/HCPCS: 71260; 74177; Q9967

== ENCOUNTER 2023-12-10 13:57 | Outpatient (CLI) | payer OTHER | END 2023-12-10 13:58 | disposition home or self-care (01) | LOC: ULT 13:57 | PROVIDERS: ATTEND Surgery Vascular Surgery | DX: I73.9 Peripheral vascular disease, unspecified (principal) | CPT/HCPCS: 76775; 93923 ==

== ENCOUNTER 2024-04-21 17:42 | Emergency (ER) | payer OTHER ==
[~2024-04-21 17:42] MED LIST changes: +Iopamidol-370 76% 500 ML MDV (1 ML CHARGE) ONE; -Sodium Chloride 0.9% 15 ML NEB ONE
[2024-04-21 18:27] LABS: #Basophils Less than 0.03 10x3/uL (0.0-0.2); %Basophils 0.1 % (0.0-1.0); %Eosinophils 0.3 % (0.0-10.0); %Lymphocytes 18.2 % (21.0-51.0); %Monocytes 1.7 % (0.0-10.0); %Neutrophils 79.1 % (42.0-75.0); Hematocrit 27.9 % (42.0-52.0); Hemoglobin 9.1 g/dL (14.0-18.0); Mean Corpuscular HGB CONC 32.6 g/dL (32.0-36.0); Mean Corpuscular Hemoglobin 30.1 pg (27.0-31.0); Mean Corpuscular Volume 92.4 fL (78.0-98.0); Platelet Count 128 10x3/uL (130-400); RBC Distribution Width 14.9 % (11.5-14.5); Red Blood Cell (RBC) Count 3.02 mill/uL (4.70-6.10)
[2024-04-21 18:43] LABS: ALT (SGPT) 24 U/L (8-55); AST (SGOT) 23 U/L (5-34); Albumin 3.6 g/dL (3.4-4.8); Alkaline Phosphatase 97 U/L (40-110); Anion Gap 17 mmol/L (10-20); BUN (Urea Nitrogen) 31 mg/dL (8.4-25.7); Bilirubin, Total 0.4 mg/dL (0.2-1.2); Calc. Creatinine Clearance 0 mL/min (70-130); Calcium 8.4 mg/dL (7.8-10.44); Carbon Dioxide 22 mmol/L (23-31); Chloride 105 mmol/L (98-107); Estimated GFR 47; Globulin 2.8 g/dL (2.4-3.5); Glucose 126 mg/dL (83-110); Potassium 3.8 mmol/L (3.5-5.1); Protein, Total 6.4 g/dL (5.8-8.1); Sodium 140 mmol/L (136-145)
== END 2024-04-21 23:17 | disposition home or self-care (01) ==
LOC: ERS 17:42
DX: K63.2 Fistula of intestine (principal); E11.9 Type 2 diabetes mellitus without complications; E78.00 Pure hypercholesterolemia, unspecified; C25.1 Malignant neoplasm of body of pancreas; I10 Essential (primary) hypertension; Z79.899 Other long term (current) drug therapy
CPT/HCPCS: 36416; 74177; 80053; 83605; 85025; 96360; Q9967

== ENCOUNTER 2024-04-24 10:10 | Inpatient (IN) | payer OTHER ==
[2024-04-24 11:00] LABS: Hematocrit 30.7 % (42.0-52.0); Mean Corpuscular HGB CONC 32.6 g/dL (32.0-36.0); Mean Corpuscular Hemoglobin 30.4 pg (27.0-31.0); Mean Corpuscular Volume 93.3 fL (78.0-98.0); Mean Platelet Volume 10.2 fL (7.4-10.4); Platelet Count 89 10x3/uL (130-400); RBC Distribution Width 14.9 % (11.5-14.5); Red Blood Cell (RBC) Count 3.29 mill/uL (4.70-6.10)
[2024-04-24 11:11] LABS: INR-International Normal Ratio 1.1; PTT 25.8 sec (22.9-36.1)
[2024-04-24 11:12] LABS: ALT (SGPT) 20 U/L (8-55); AST (SGOT) 19 U/L (5-34); Albumin 3.7 g/dL (3.4-4.8); Alkaline Phosphatase 147 U/L (40-110); Anion Gap 17 mmol/L (10-20); BUN (Urea Nitrogen) 25 mg/dL (8.4-25.7); Bilirubin, Total 0.5 mg/dL (0.2-1.2); Calc. Creatinine Clearance 0 mL/min (70-130); Calcium 9.2 mg/dL (7.8-10.44); Carbon Dioxide 24 mmol/L (23-31); Chloride 103 mmol/L (98-107); Estimated GFR 55; Globulin 3.2 g/dL (2.4-3.5); Glucose 295 mg/dL (83-110); Potassium 3.9 mmol/L (3.5-5.1); Protein, Total 6.9 g/dL (5.8-8.1); Sodium 140 mmol/L (136-145)
[2024-04-24 11:38] LABS: Band 22 % (5-11); Hypochromia SLIGHT = 6-15 cells HPF (0-5); Lymphocytes 10 % (21-51); Monocytes 3 % (0-10); Neutrophil 65 % (42-75); Platelet Adequacy Comment Platelets Decreased; Poikilocytosis SLIGHT = 6-15 cells HPF (0-5); Polychromasia SLIGHT = 2-3 cells HPF (0-2)
[2024-04-24] MEDS ORDERED: Sodium Chloride 0.9% 100 ML ONE (11:41)
[2024-04-24] MEDS ORDERED: Piperacillin/Tazobactam 4.5 GM VIAL ONE (11:41)
[2024-04-24] MEDS ORDERED: GASTROGRAFIN 30 ML BOT ONE (11:53)
[2024-04-24] MEDS ORDERED: Iopamidol-370 76% 500 ML MDV (1 ML CHARGE) ONE (11:53)
[2024-04-24] MEDS ORDERED: Ipratropium/Albuterol 3 ML NEB NEB PRN (14:46)
[2024-04-24] MEDS ORDERED: Morphine 2 MG/ML VIAL SLOW IVP PRN (14:46)
[2024-04-24] MEDS ORDERED: Ondansetron PF 4 MG/2 ML Vial IVP PRN (14:46)
[2024-04-24] MEDS ORDERED: Piperacillin/Tazobactam 3.375 GM in Sodium Chloride 0.9% 100 ML IVPB SCH ×2 (15:00→16:00)
[2024-04-24 15:25] LABS: Lactic Acid 1.93 mmol/L (0.5-2.2)
[2024-04-24] MEDS: Acetaminophen 325 MG TAB PO SCH (16:03)
[2024-04-24] MEDS: Sodium Chloride 0.9% 1,000 ML IV SCH (16:21)
[2024-04-24] MEDS: Piperacillin/Tazobactam 3.375 GM in Sodium Chloride 0.9% 100 ML IVPB SCH (16:21)
[2024-04-24 16:40] VITALS: BMI 20.3
[2024-04-24] MEDS ORDERED: Dextrose 50% Abboject 50 ML SYRINGE SLOW IVP PRN (17:26)
[2024-04-24] MEDS ORDERED: Insulin Lispro 100 UNIT/ML 10 ML VIAL SC PRN (17:26)
[2024-04-24] MEDS ORDERED: Glucagon 1 MG/ML KIT IM PRN (17:26)
[2024-04-24] MEDS ORDERED: Calcium Carbonate 500 MG ChewTAB PO PRN (17:55)
[2024-04-24] MEDS: Atorvastatin Calcium 20 MG TAB PO SCH (20:59)
[2024-04-24] MEDS: Glimepiride 1 MG TAB PO SCH (20:59)
[2024-04-24] MEDS: Famotidine/PF 20 mg/2ml Vial SLOW IVP SCH (20:59)
[2024-04-24] MEDS: Dextrose 5% in Water 1,000 ML IV PRN (22:34)
[2024-04-25] MEDS: Dextrose 5 % And 0.9 % NaCl 1,000 ML IV SCH (04:25)
[2024-04-25 05:06] LABS: Hemoglobin 8.1 g/dL (14.0-18.0); Mean Corpuscular HGB CONC 32.4 g/dL (32.0-36.0); Mean Corpuscular Hemoglobin 30.2 pg (27.0-31.0); Mean Corpuscular Volume 93.3 fL (78.0-98.0); Mean Platelet Volume 10.2 fL (7.4-10.4); Platelet Count 74 10x3/uL (130-400); RBC Distribution Width 14.9 % (11.5-14.5); Red Blood Cell (RBC) Count 2.68 mill/uL (4.70-6.10)
[2024-04-25 05:15] LABS: Anion Gap 11 mmol/L (10-20); BUN (Urea Nitrogen) 20 mg/dL (8.4-25.7); Calc. Creatinine Clearance 51 mL/min (70-130); Calcium 8.1 mg/dL (7.8-10.44); Carbon Dioxide 25 mmol/L (23-31); Chloride 103 mmol/L (98-107); Estimated GFR 66; Glucose 113 mg/dL (83-110); Potassium 3.3 mmol/L (3.5-5.1); Sodium 136 mmol/L (136-145)
[2024-04-25 05:36] LABS: Anisocytosis SLIGHT = 6-15 cells HPF (0-5); Band 16 % (5-11); Dohle Bodies SLIGHT; Hypochromia SLIGHT = 6-15 cells HPF (0-5); Lymphocytes 7 % (21-51); Metamyelocyte 2 % (0-0); Monocytes 7 % (0-10); Neutrophil 68 % (42-75); Nucleated RBC (Manual Ct) 1 % (0); Ovalocytes SLIGHT = 2-5 cells HPF (0-1); Platelet Adequacy Comment Platelets Decreased; Polychromasia SLIGHT = 2-3 cells HPF (0-2); Tear Drops SLIGHT = 2-5 cells HPF (0-1); Toxic Granulation MODERATE
[2024-04-25] MEDS: Glimepiride 1 MG TAB PO SCH (08:55)
[2024-04-25] MEDS ORDERED: Lisinopril 2.5 MG TAB PO SCH (09:00)
[2024-04-25] MEDS ORDERED: Famotidine/PF 20 mg/2ml Vial SLOW IVP SCH (09:00)
[2024-04-25] MEDS: Pancrelipase DR 12,000 1 CAP PO SCH (09:13)
[2024-04-25] MEDS: Lisinopril 2.5 MG TAB PO SCH (09:14)
[2024-04-25] MEDS: Clopidogrel Bisulfate 75 MG TAB PO SCH (09:15)
[2024-04-25] MEDS: Enoxaparin 40 MG (0.4 mL) SYRINGE SC SCH (09:15)
[2024-04-25] MEDS: Pantoprazole DR 40 MG TAB PO SCH (09:15)
[2024-04-25 12:57] VITALS: BMI 20.3
[2024-04-25] MEDS ORDERED: D5 LR w/20 mEq KCL 1,000 ML IV SCH (13:15)
[2024-04-25] MEDS: Potassium Chloride 20 MEQ in Premix 1 BAG IVPB SCH (13:37)
[2024-04-25] MEDS: D5 LR w/20 mEq KCL 1,000 ML IV SCH (14:52)
[2024-04-26 05:12] LABS: ALT (SGPT) 15 U/L (8-55); AST (SGOT) 17 U/L (5-34); Albumin 2.8 g/dL (3.4-4.8); Alkaline Phosphatase 125 U/L (40-110); Anion Gap 10 mmol/L (10-20); BUN (Urea Nitrogen) 14 mg/dL (8.4-25.7); Bilirubin, Total 0.4 mg/dL (0.2-1.2); Calc. Creatinine Clearance 42 mL/min (70-130); Calcium 8.1 mg/dL (7.8-10.44); Carbon Dioxide 26 mmol/L (23-31); Chloride 107 mmol/L (98-107); Estimated GFR 53; Globulin 2.4 g/dL (2.4-3.5); Glucose 124 mg/dL (83-110); Magnesium 1.7 mg/dL (1.6-2.6); Potassium 4.1 mmol/L (3.5-5.1); Protein, Total 5.2 g/dL (5.8-8.1); Sodium 139 mmol/L (136-145)
[2024-04-26 05:21] LABS: Hematocrit 25.2 % (42.0-52.0); Hemoglobin 8.1 g/dL (14.0-18.0); Mean Corpuscular HGB CONC 32.1 g/dL (32.0-36.0); Mean Corpuscular Hemoglobin 30.5 pg (27.0-31.0); Mean Corpuscular Volume 94.7 fL (78.0-98.0); Mean Platelet Volume 9.9 fL (7.4-10.4); Platelet Count 71 10x3/uL (130-400); RBC Distribution Width 14.8 % (11.5-14.5); Red Blood Cell (RBC) Count 2.66 mill/uL (4.70-6.10)
[2024-04-26 08:26] LABS: Band 22 % (5-11); Dohle Bodies SLIGHT; Eosinophils 1 % (0-10); Lymphocytes 10 % (21-51); Metamyelocyte 1 % (0-0); Monocytes 7 % (0-10); Neutrophil 60 % (42-75); Platelet Adequacy Comment Platelets Decreased; Polychromasia SLIGHT = 2-3 cells HPF (0-2); Tear Drops SLIGHT = 2-5 cells HPF (0-1)
[2024-04-26] MEDS: Magnesium 2 GM/50 ML(in water) 2 GM in Premix 1 BAG IVPB SCH (08:54)
[2024-04-26] MEDS: Folic Acid 1 MG TAB PO SCH (21:13)
[2024-04-26] MEDS: Multivit, Therapeutic 1 TAB PO SCH (21:13)
[2024-04-26] MEDS: Cyanocobalamin (Vitamin B-12) 1,000 MCG TAB PO SCH (21:13)
[2024-04-26] MEDS: Thiamine 100 MG TAB PO SCH (21:13)
[2024-04-26] MEDS: Insulin Lispro 100 UNIT/ML 10 ML VIAL SC PRN (21:14)
[2024-04-27 05:24] LABS: ALT (SGPT) 16 U/L (8-55); AST (SGOT) 16 U/L (5-34); Albumin 2.9 g/dL (3.4-4.8); Alkaline Phosphatase 134 U/L (40-110); Anion Gap 9 mmol/L (10-20); BUN (Urea Nitrogen) 12 mg/dL (8.4-25.7); Bilirubin, Total 0.3 mg/dL (0.2-1.2); Calc. Creatinine Clearance 49 mL/min (70-130); Calcium 8.2 mg/dL (7.8-10.44); Carbon Dioxide 26 mmol/L (23-31); Chloride 107 mmol/L (98-107); Estimated GFR 63; Globulin 2.4 g/dL (2.4-3.5); Glucose 90 mg/dL (83-110); Magnesium 2.1 mg/dL (1.6-2.6); Potassium 3.9 mmol/L (3.5-5.1); Protein, Total 5.3 g/dL (5.8-8.1); Sodium 138 mmol/L (136-145)
[2024-04-27 05:33] LABS: Hematocrit 24.5 % (42.0-52.0); Mean Corpuscular HGB CONC 32.7 g/dL (32.0-36.0); Mean Corpuscular Hemoglobin 30.7 pg (27.0-31.0); Mean Corpuscular Volume 93.9 fL (78.0-98.0); Platelet Count 72 10x3/uL (130-400); RBC Distribution Width 14.8 % (11.5-14.5); Red Blood Cell (RBC) Count 2.61 mill/uL (4.70-6.10)
[2024-04-27 06:51] LABS: Anisocytosis SLIGHT = 6-15 cells HPF (0-5); Band 10 % (5-11); Burr Cells SLIGHT = 2-5 cells HPF (0-1); Elliptocytes SLIGHT = 2-5 cells HPF (0-1); Eosinophils 2 % (0-10); Lymphocytes 9 % (21-51); Neutrophil 79 % (42-75); Platelet Adequacy Comment Platelets Decreased; Polychromasia SLIGHT = 2-3 cells HPF (0-2); Tear Drops SLIGHT = 2-5 cells HPF (0-1)
[2024-04-27] MEDS: Clopidogrel Bisulfate 75 MG TAB PO SCH (09:47)
[2024-04-27] MEDS: Glimepiride 1 MG TAB PO SCH (17:23)
[2024-04-27] MEDS: Acetaminophen 325 MG TAB PO PRN (20:21)
[2024-04-28 06:04] LABS: Hematocrit 24.9 % (42.0-52.0); Hemoglobin 8.1 g/dL (14.0-18.0); Mean Corpuscular HGB CONC 32.5 g/dL (32.0-36.0); Mean Corpuscular Hemoglobin 30.5 pg (27.0-31.0); Mean Corpuscular Volume 93.6 fL (78.0-98.0); Mean Platelet Volume 10.2 fL (7.4-10.4); Platelet Count 77 10x3/uL (130-400); RBC Distribution Width 15.1 % (11.5-14.5); Red Blood Cell (RBC) Count 2.66 mill/uL (4.70-6.10)
[2024-04-28 06:11] LABS: ALT (SGPT) 15 U/L (8-55); AST (SGOT) 14 U/L (5-34); Albumin 2.9 g/dL (3.4-4.8); Alkaline Phosphatase 149 U/L (40-110); Anion Gap 11 mmol/L (10-20); BUN (Urea Nitrogen) 13 mg/dL (8.4-25.7); Bilirubin, Total 0.2 mg/dL (0.2-1.2); Calc. Creatinine Clearance 50 mL/min (70-130); Calcium 8.3 mg/dL (7.8-10.44); Carbon Dioxide 25 mmol/L (23-31); Chloride 106 mmol/L (98-107); Estimated GFR 65; Globulin 2.5 g/dL (2.4-3.5); Glucose 143 mg/dL (83-110); Magnesium 1.8 mg/dL (1.6-2.6); Potassium 4.2 mmol/L (3.5-5.1); Protein, Total 5.4 g/dL (5.8-8.1); Sodium 138 mmol/L (136-145)
[2024-04-28 07:00] LABS: Band 19 % (5-11); Lymphocytes 11 % (21-51); Monocytes 6 % (0-10); Neutrophil 65 % (42-75); Platelet Adequacy Comment Platelets Decreased; Polychromasia SLIGHT = 2-3 cells HPF (0-2)
[2024-04-28] MEDS: Glimepiride 2 MG TAB PO SCH (07:39)
[2024-04-28] MEDS ORDERED: Heparin 5,000 UNITS/ML VIAL SC SCH (09:00)
[2024-04-28] MEDS: Pancrelipase DR 12,000 1 CAP PO SCH (18:04)
[2024-04-29 00:19] VITALS: BP 108/61; TEMP 98.3
== END 2024-04-29 01:00 | disposition short-term general hospital (02) | DRG 394 ==
LOC: ERS 10:10 → SURG B 14:49 → OBSVTOIN 14:49 → SURG B 15:58
PROVIDERS: ADMIT Surgery; ATTEND Internal Medicine
DX: K63.2 Fistula of intestine (principal); C25.9 Malignant neoplasm of pancreas, unspecified; E44.0 Moderate protein-calorie malnutrition; C67.9 Malignant neoplasm of bladder, unspecified; E78.5 Hyperlipidemia, unspecified; I12.9 Hypertensive chronic kidney disease with stage 1 through stage 4 chronic kidney disease, or unspecified chronic kidney disease; E11.22 Type 2 diabetes mellitus with diabetic chronic kidney disease; D63.1 Anemia in chronic kidney disease; E78.00 Pure hypercholesterolemia, unspecified; E87.6 Hypokalemia; D69.6 Thrombocytopenia, unspecified; I71.9 Aortic aneurysm of unspecified site, without rupture; N18.30 Chronic kidney disease, stage 3 unspecified; E83.42 Hypomagnesemia; E11.649 Type 2 diabetes mellitus with hypoglycemia without coma; D63.0 Anemia in neoplastic disease; Z90.49 Acquired absence of other specified parts of digestive tract; Z89.611 Acquired absence of right leg above knee; Z88.8 Allergy status to other drugs, medicaments and biological substances; Z79.02 Long term (current) use of antithrombotics/antiplatelets; Z79.899 Other long term (current) drug therapy; Z85.47 Personal history of malignant neoplasm of testis; Z68.20 Body mass index [BMI] 20.0-20.9, adult
CPT/HCPCS: 36415; 36416; 74177; 80048; 80053; 83605; 83735; 84100; 85025; 85610; 85730; 87040; 96360; 96365; 97139; J1650; J1815; J2543; J3475; J3480; J3490; J7030; J7042; J7070; Q9963; Q9967

== ENCOUNTER 2024-05-10 17:26 | Inpatient (IN) | payer OTHER ==
[2024-05-10 18:00] LABS: Hematocrit 32.7 % (42.0-52.0); Hemoglobin 11.3 g/dL (14.0-18.0); Mean Corpuscular HGB CONC 34.6 g/dL (32.0-36.0); Mean Corpuscular Hemoglobin 30.3 pg (27.0-31.0); Mean Corpuscular Volume 87.7 fL (78.0-98.0); Mean Platelet Volume 10.2 fL (7.4-10.4); Platelet Count 216 10x3/uL (130-400); RBC Distribution Width 16.1 % (11.5-14.5); Red Blood Cell (RBC) Count 3.73 mill/uL (4.70-6.10)
[2024-05-10] MEDS ORDERED: Cefepime 2 GM VIAL ONE (18:14)
[2024-05-10] MEDS ORDERED: Sodium Chloride 0.9% 100 ML ONE (18:14)
[2024-05-10 18:18] LABS: Troponin I 0.023 ng/mL (< 0.028)
[2024-05-10 18:26] LABS: BUN (Urea Nitrogen) 135 mg/dL (8.4-25.7)
[2024-05-10 18:26] LABS: Anisocytosis SLIGHT = 6-15 cells HPF (0-5); Band 1 % (5-11); Lymphocytes 16 % (21-51); Monocytes 2 % (0-10); Neutrophil 81 % (42-75); Ovalocytes SLIGHT = 2-5 cells HPF (0-1); Platelet Adequacy Comment Platelets Normal; Poikilocytosis SLIGHT = 6-15 cells HPF (0-5); Polychromasia SLIGHT = 2-3 cells HPF (0-2)
[2024-05-10 19:00] LABS: ALT (SGPT) 27 U/L (8-55); AST (SGOT) 25 U/L (5-34); Albumin 3.7 g/dL (3.4-4.8); Alkaline Phosphatase 217 U/L (40-110); Anion Gap 19 mmol/L (10-20); Bilirubin, Total 0.3 mg/dL (0.2-1.2); Calc. Creatinine Clearance 0 mL/min (70-130); Calcium 9.1 mg/dL (7.8-10.44); Carbon Dioxide 16 mmol/L (23-31); Chloride 103 mmol/L (98-107); Estimated GFR 32; Globulin 3.8 g/dL (2.4-3.5); Glucose 156 mg/dL (83-110); Lipase 10 U/L (8-78); Potassium 3.8 mmol/L (3.5-5.1); Protein, Total 7.5 g/dL (5.8-8.1); Sodium 134 mmol/L (136-145)
[2024-05-10 19:20] LABS: Magnesium 2.6 mg/dL (1.6-2.6)
[2024-05-10 19:33] LABS: Bilirubin Negative (Negative); Blood, Urine Negative (Negative); CAUTI Indications for Culture Immunosuppressed; Clarity Clear (Clear); Glucose, Urine (Dipstick) Normal (Negative); Ketone, Urine Negative (Negative); Leukocyte Negative Leu/uL (Negative); Nitrite Negative (Negative); Protein, Urine (Dipstick) 30 mg/dL (Neg-Trace); RBC/HPF 0-3 HPF (0-3); Squamous Epithelial 0-3 HPF (0-3); Urobilinogen Normal mg/dL (Less than 2); WBC/HPF 0-3 HPF (0-3)
[2024-05-10 19:47] LABS: Bacteria/HPF None Seen HPF (None Seen)
[2024-05-10 19:49] LABS: Urine Culture Reflex Yes Yes
[2024-05-11] MEDS ORDERED: Famotidine 20 MG TAB ONE (08:28)
[2024-05-11] MEDS ORDERED: Pantoprazole DR 40 MG TAB ONE ×2 (08:28→21:05)
[2024-05-11] MEDS ORDERED: Clopidogrel Bisulfate 75 MG TAB ONE (08:28)
[2024-05-11] MEDS ORDERED: Loperamide HCl 2 MG CAP ONE ×2 (08:28→21:05)
[2024-05-11] MEDS ORDERED: Acetaminophen 325 MG TAB ONE ×2 (11:46→17:00)
[2024-05-11] MEDS ORDERED: Dextrose 50% Abboject 50 ML SYRINGE ONE (16:01)
[2024-05-11] MEDS ORDERED: Atorvastatin Calcium 20 MG TAB ONE (21:05)
[2024-05-12] MEDS: Vancomycin (BATCH) 1.5 GM in Premix 1 BAG IVPB SCH (16:51)
[2024-05-12 17:38] VITALS: BMI 18.6
[2024-05-12] MEDS: Pantoprazole DR 40 MG TAB ONE ×3 (18:38→22:47)
[2024-05-12] MEDS: Acetaminophen 325 MG TAB ONE ×7 (18:38→23:51)
[2024-05-12] MEDS: Insulin Lispro 100 UNIT/ML 10 ML VIAL ONE ×2 (18:38)
[2024-05-12] MEDS: Atorvastatin Calcium 20 MG TAB ONE ×2 (18:38→22:46)
[2024-05-12] MEDS: Loperamide HCl 2 MG CAP ONE ×5 (18:38→22:46)
[2024-05-12] MEDS: Clopidogrel Bisulfate 75 MG TAB ONE (22:45)
[2024-05-12] MEDS: Famotidine 20 MG TAB ONE (22:45)
[2024-05-12] MEDS: Insulin Glargine 30 UNITS/0.3 ML VIAL ONE (22:45)
[2024-05-12] MEDS ORDERED: Acetaminophen 325 MG TAB ONE (23:42)
[2024-05-13 05:06] LABS: Hematocrit 26.6 % (42.0-52.0); Hemoglobin 9.1 g/dL (14.0-18.0); Mean Corpuscular HGB CONC 34.2 g/dL (32.0-36.0); Mean Corpuscular Hemoglobin 30.6 pg (27.0-31.0); Mean Corpuscular Volume 89.6 fL (78.0-98.0); Mean Platelet Volume 10.4 fL (7.4-10.4); Platelet Count 155 10x3/uL (130-400); RBC Distribution Width 16.1 % (11.5-14.5); Red Blood Cell (RBC) Count 2.97 mill/uL (4.70-6.10)
[2024-05-13 05:32] LABS: Anion Gap 13 mmol/L (10-20); BUN (Urea Nitrogen) 91 mg/dL (8.4-25.7); Calc. Creatinine Clearance 29 mL/min (70-130); Calcium 8.4 mg/dL (7.8-10.44); Carbon Dioxide 15 mmol/L (23-31); Chloride 111 mmol/L (98-107); Estimated GFR 38; Glucose 397 mg/dL (83-110); Potassium 3.8 mmol/L (3.5-5.1); Sodium 135 mmol/L (136-145)
[2024-05-13] MEDS ORDERED: Acetaminophen 325 MG TAB ONE ×2 (05:40→11:07)
[2024-05-13] MEDS: Acetaminophen 325 MG TAB ONE ×4 (06:02→17:20)
[2024-05-13] MEDS ORDERED: Ondansetron PF 4 MG/2 ML Vial IVP PRN (07:57)
[2024-05-13] MEDS ORDERED: Glucagon 1 MG/ML KIT IM PRN (08:04)
[2024-05-13] MEDS ORDERED: Dextrose 50% Abboject 50 ML SYRINGE SLOW IVP PRN (08:04)
[2024-05-13 09:11] VITALS: BMI 18.6
[2024-05-13] MEDS ORDERED: Clopidogrel Bisulfate 75 MG TAB ONE (11:07)
[2024-05-13] MEDS ORDERED: Pantoprazole 40 MG VIAL ONE (11:07)
[2024-05-13] MEDS ORDERED: Loperamide HCl 2 MG CAP ONE (11:07)
[2024-05-13] MEDS ORDERED: Famotidine/PF 20 mg/2ml Vial ONE (11:07)
[2024-05-13] MEDS ORDERED: Enoxaparin 30 MG (0.3 mL) SYRINGE ONE (11:07)
[2024-05-13] MEDS: Insulin Glargine 30 UNITS/0.3 ML VIAL SC SCH (11:09)
[2024-05-13] MEDS: Clopidogrel Bisulfate 75 MG TAB PO SCH (11:12)
[2024-05-13] MEDS: Loperamide HCl 2 MG CAP PO SCH (11:12)
[2024-05-13] MEDS: Clopidogrel Bisulfate 75 MG TAB ONE (11:15)
[2024-05-13] MEDS: Pantoprazole 40 MG VIAL IVP SCH (11:15)
[2024-05-13] MEDS: Loperamide HCl 2 MG CAP ONE ×4 (11:15→20:39)
[2024-05-13] MEDS: Insulin Glargine 30 UNITS/0.3 ML VIAL ONE ×2 (11:16→11:17)
[2024-05-13] MEDS: Pantoprazole DR 40 MG TAB ONE (11:16)
[2024-05-13] MEDS: Enoxaparin 30 MG (0.3 mL) SYRINGE SC SCH (11:17)
[2024-05-13] MEDS: Famotidine/PF 20 mg/2ml Vial ONE ×2 (11:17→11:19)
[2024-05-13] MEDS: Insulin Lispro 100 UNIT/ML 10 ML VIAL SC PRN ×2 (12:19→21:59)
[2024-05-13] MEDS: PATIENT'S HOME MEDICATION IV SCH (17:17)
[2024-05-13] MEDS: Acetaminophen 325 MG TAB PO PRN (17:19)
[2024-05-13] MEDS: Atorvastatin Calcium 20 MG TAB ONE ×2 (20:38→20:39)
[2024-05-13] MEDS: Multivit, Therapeutic 1 TAB PO SCH (20:38)
[2024-05-13] MEDS: Atorvastatin Calcium 20 MG TAB PO SCH (20:38)
[2024-05-14 07:09] LABS: #Basophils 0.05 10x3/uL (0.0-0.2); %Basophils 0.3 % (0.0-1.0); %Eosinophils 4.6 % (0.0-10.0); %Lymphocytes 11.4 % (21.0-51.0); %Monocytes 5.6 % (0.0-10.0); %Neutrophils 77.7 % (42.0-75.0); Hematocrit 26.9 % (42.0-52.0); Hemoglobin 8.9 g/dL (14.0-18.0); Mean Corpuscular HGB CONC 33.1 g/dL (32.0-36.0); Mean Corpuscular Hemoglobin 30.6 pg (27.0-31.0); Mean Corpuscular Volume 92.4 fL (78.0-98.0); Mean Platelet Volume 10.8 fL (7.4-10.4); Platelet Count 133 10x3/uL (130-400); RBC Distribution Width 16.3 % (11.5-14.5); Red Blood Cell (RBC) Count 2.91 mill/uL (4.70-6.10)
[2024-05-14 07:45] LABS: Anion Gap 13 mmol/L (10-20); BUN (Urea Nitrogen) 88 mg/dL (8.4-25.7); Calc. Creatinine Clearance 31 mL/min (70-130); Calcium 8.6 mg/dL (7.8-10.44); Carbon Dioxide 14 mmol/L (23-31); Chloride 113 mmol/L (98-107); Estimated GFR 41; Glucose 393 mg/dL (83-110); Potassium 3.8 mmol/L (3.5-5.1); Sodium 136 mmol/L (136-145)
[2024-05-14] MEDS: Folic Acid 1 MG TAB PO SCH (08:34)
[2024-05-14] MEDS: Loperamide HCl 2 MG CAP PO SCH (08:34)
[2024-05-14] MEDS: Clopidogrel Bisulfate 75 MG TAB ONE (08:34)
[2024-05-14] MEDS: Thiamine 100 MG TAB PO SCH (08:34)
[2024-05-14] MEDS: Pantoprazole DR 40 MG TAB ONE (08:34)
[2024-05-14] MEDS: Famotidine 20 MG TAB ONE (08:34)
[2024-05-14] MEDS: Enoxaparin 30 MG (0.3 mL) SYRINGE SC SCH (08:35)
[2024-05-14] MEDS: Insulin Glargine 30 UNITS/0.3 ML VIAL ONE (08:35)
[2024-05-14] MEDS: Acetaminophen 325 MG TAB ONE (11:58)
[2024-05-14] MEDS: Insulin Glargine 30 UNITS/0.3 ML VIAL SC SCH (20:39)
[2024-05-14] MEDS: Atorvastatin Calcium 20 MG TAB ONE (22:35)
[2024-05-15 07:03] LABS: Hematocrit 27.6 % (42.0-52.0); Hemoglobin 9.3 g/dL (14.0-18.0); Mean Corpuscular HGB CONC 33.7 g/dL (32.0-36.0); Mean Corpuscular Hemoglobin 30.6 pg (27.0-31.0); Mean Corpuscular Volume 90.8 fL (78.0-98.0); Mean Platelet Volume 10.4 fL (7.4-10.4); Platelet Count 148 10x3/uL (130-400); RBC Distribution Width 16.3 % (11.5-14.5); Red Blood Cell (RBC) Count 3.04 mill/uL (4.70-6.10)
[2024-05-15 07:19] LABS: Anion Gap 13 mmol/L (10-20); BUN (Urea Nitrogen) 87 mg/dL (8.4-25.7); Calc. Creatinine Clearance 30 mL/min (70-130); Calcium 8.6 mg/dL (7.8-10.44); Carbon Dioxide 14 mmol/L (23-31); Chloride 112 mmol/L (98-107); Estimated GFR 41; Glucose 345 mg/dL (83-110); Potassium 3.8 mmol/L (3.5-5.1); Sodium 135 mmol/L (136-145)
[2024-05-15] MEDS: Famotidine 20 MG TAB ONE (08:16)
[2024-05-15] MEDS: Pantoprazole DR 40 MG TAB ONE (09:35)
[2024-05-15] MEDS: Insulin Glargine 30 UNITS/0.3 ML VIAL ONE (09:35)
[2024-05-15] MEDS: Clopidogrel Bisulfate 75 MG TAB ONE (09:35)
[2024-05-15] MEDS: Loperamide HCl 2 MG CAP ONE ×2 (12:30→20:06)
[2024-05-15 19:45] VITALS: TEMP 97.6
[2024-05-15] MEDS: Dextrose 5% in Water 1,000 ML IV PRN (19:58)
[2024-05-15] MEDS: Atorvastatin Calcium 20 MG TAB ONE (20:06)
[2024-05-15] MEDS: Glucagon 1 MG/ML KIT ONE (20:06)
[2024-05-15 23:23] VITALS: BP 118/78
== END 2024-05-15 23:20 | disposition short-term general hospital (02) | DRG 683 ==
LOC: ERS 17:26 → MSONC 05-12 16:38
PROVIDERS: ADMIT Student in an Organized Health Care Education/Training Program; ATTEND Internal Medicine
DX: N17.9 Acute kidney failure, unspecified (principal); C25.9 Malignant neoplasm of pancreas, unspecified; K63.2 Fistula of intestine; E87.1 Hypo-osmolality and hyponatremia; E44.0 Moderate protein-calorie malnutrition; E86.0 Dehydration; E78.00 Pure hypercholesterolemia, unspecified; E11.22 Type 2 diabetes mellitus with diabetic chronic kidney disease; N18.9 Chronic kidney disease, unspecified; I12.9 Hypertensive chronic kidney disease with stage 1 through stage 4 chronic kidney disease, or unspecified chronic kidney disease; Z79.4 Long term (current) use of insulin; Z88.8 Allergy status to other drugs, medicaments and biological substances; Z79.899 Other long term (current) drug therapy; Z90.49 Acquired absence of other specified parts of digestive tract
CPT/HCPCS: 36415; 36416; 71045; 80048; 80053; 81001; 83605; 83690; 83735; 84478; 84484; 85025; 85027; 87040; 87086; 93005; 94760; 96361; 96365; 96366; 96367; 97139; J1650; J1815; J2470; J3490; J7070; J7999

== ENCOUNTER 2025-01-22 22:04 | Emergency (ER) | payer OTHER ==
[2025-01-22] MEDS ORDERED: Gabapentin 100 MG CAP ONE (23:28)
[2025-01-23] MEDS ORDERED: Gabapentin 100 MG CAP ONE (00:03)
== END 2025-01-23 00:48 | disposition home or self-care (01) ==
LOC: ERS 22:04
DX: G54.6 Phantom limb syndrome with pain (principal); E11.9 Type 2 diabetes mellitus without complications; E78.00 Pure hypercholesterolemia, unspecified; I10 Essential (primary) hypertension; Z79.4 Long term (current) use of insulin; Z79.899 Other long term (current) drug therapy
CPT/HCPCS: 99282

== ENCOUNTER 2025-02-21 14:18 | Emergency (ER) | payer OTHER ==
[2025-02-21] MEDS ORDERED: Iopamidol-370 76% 500 ML MDV (1 ML CHARGE) ONE (14:57)
[2025-02-21 16:07] LABS: #Basophils 0.03 10x3/uL (0.0-0.2); #Eosinophils 0.12 10x3/uL (0.0-0.7); #Monocytes 0.48 10x3/uL (0.11-0.59); #Neutrophils 5.22 10x3/uL (1.40-6.50); %Basophils 0.4 % (0.0-1.0); %Eosinophils 1.6 % (0.0-10.0); %Lymphocytes 21.3 % (21.0-51.0); %Monocytes 6.4 % (0.0-10.0); %Neutrophils 70.0 % (42.0-75.0); Hematocrit 32.7 % (42.0-52.0); Hemoglobin 11.0 g/dL (14.0-18.0); Mean Corpuscular Hemoglobin 29.9 pg (27.0-31.0); Mean Corpuscular Volume 88.9 fL (78.0-98.0); Platelet Count 157 10x3/uL (130-400); Red Blood Cell (RBC) Count 3.68 mill/uL (4.70-6.10); White Blood Cell (WBC) Count 7.46 10x3/uL (4.8-10.8)
[2025-02-21 16:32] LABS: ALT (SGPT) 15 U/L (Less than 45); AST (SGOT) 27 U/L (11-34); Albumin 3.0 g/dL (3.1-4.5); Alkaline Phosphatase 100 U/L (40-110); Anion Gap 13 mmol/L (10-20); BUN (Urea Nitrogen) 23 mg/dL (8.4-25.7); Bilirubin, Total 0.4 mg/dL (0.3-1.2); Calc. Creatinine Clearance 0 mL/min (70-130); Calcium 9.5 mg/dL (7.8-10.44); Carbon Dioxide 27 mmol/L (23-31); Chloride 104 mmol/L (98-107); Globulin 4.0 g/dL (2.4-3.5); Glucose 98 mg/dL (83-110); Lipase 5 U/L (8-78); Potassium 4.1 mmol/L (3.5-5.1); Sodium 140 mmol/L (136-145)
[2025-02-21 17:38] LABS: Bacteria/HPF None Seen HPF (None Seen); CAUTI Indications for Culture Pelvic or flank pain; Glucose, Urine (Dipstick) Normal (Negative); Leukocyte Negative Leu/uL (Negative); Protein, Urine (Dipstick) 200 mg/dL (Neg-Trace); RBC/HPF 0-3 HPF (0-3); Specific Gravity, Urine 1.023 (1.002-1.036); WBC/HPF 0-3 HPF (0-3)
[2025-02-21 17:57] LABS: Urine Culture Reflex No No
[2025-02-21] MEDS ORDERED: Ketorolac Tromethamine 30 MG (1 mL) VIAL ONE (18:55)
== END 2025-02-21 19:15 | disposition home or self-care (01) ==
LOC: ERS 14:18
DX: K52.9 Noninfective gastroenteritis and colitis, unspecified (principal); E11.9 Type 2 diabetes mellitus without complications; I10 Essential (primary) hypertension; E78.5 Hyperlipidemia, unspecified
CPT/HCPCS: 71045; 74177; 80053; 81001; 83605; 83690; 84484; 85025; 93005; 96374; 99284; J1885; Q9967